=== PATIENT | male | born 1955 | race Caucasian/White ===

== ENCOUNTER 2019-08-30 13:19 | Outpatient (RCR) | payer OTHER, SELFPAY ==
[2019-08-30 14:23] LABS: Prostate Specific Antigen 3.2 ng/mL (< OR = 4.0)
== END 2019-11-28 23:59 | disposition home or self-care (01) ==
LOC: ANHLAB 13:19
PROVIDERS: PCP Physician Assistant
DX: C61 Malignant neoplasm of prostate (principal)
CPT/HCPCS: 36415; 84153

== ENCOUNTER 2019-12-26 09:55 | Outpatient (CLI) | payer OTHER, SELFPAY ==
[2019-12-26 10:29] LABS: Hemoglobin 16.7 g/dL (14.0-18.0); Mean Corpuscular HGB Conc 33.4 g/dl (32-36); Mean Corpuscular Volume 92.9 fl (80-100); Mean Platelet Volume 10.4 fl (7.4-10.4); Platelet Count Result 210 k/mm3 (150-375); Red Blood Count 5.38 M/mm3 (4.6-6.20); Red Cell Distribution Width 12.7 % (11.5-14.5); White Blood Count 5.4 K/mm3 (4.5-10.0)
[2019-12-26 10:38] LABS: Alanine Aminotransferase 26 U/L (4-50); Albumin Level 4.1 g/dL (3.5-5.1); Alkaline Phosphatase 89 U/L (38-126); Aspartate Amino Transferase 26 U/L (17-59); Bilirubin,Total 0.8 mg/dL (0.2-1.3); Blood Urea Nitrogen 14 mg/dL (9-20); Calcium 8.6 mg/dL (8.4-10.2); Carbon Dioxide 30 mmol/L (22-30); Chloride 102 mmol/L (98-107); Cholesterol 115 mg/dL (0-200); Estimated Glomerular Filt Rate > 60; Glucose 119 mg/dL (75-110); HDL Direct 33 mg/dL; Magnesium 2.1 mg/dL (1.6-2.3); Potassium 4.2 mmol/L (3.4-5.0); Sodium 140 mmol/L (137-145); Triglycerides 95 mg/dL (<150)
[2019-12-26 10:48] LABS: LDL Cholesterol Direct 67 mg/dL
== END 2019-12-26 09:56 | disposition home or self-care (01) ==
PROVIDERS: PCP Physician Assistant; Visit Provider Physician Assistant
DX: I10 Essential (primary) hypertension (principal); E78.5 Hyperlipidemia, unspecified; R97.20 Elevated prostate specific antigen [PSA]
CPT/HCPCS: 36415; 80053; 80061; 83735; 84153; 84443; 85027

== ENCOUNTER 2020-06-06 09:03 | Outpatient (CLI) | payer OTHER, SELFPAY ==
[2020-06-06 11:14] LABS: Alanine Aminotransferase 25 U/L (4-50); Albumin Level 4.1 g/dL (3.5-5.1); Alkaline Phosphatase 83 U/L (38-126); Anion Gap 8 mmol/L (8-16); Aspartate Amino Transferase 23 U/L (17-59); Bilirubin,Total 0.8 mg/dL (0.2-1.3); Blood Urea Nitrogen 15 mg/dL (9-20); Calcium 8.7 mg/dL (8.4-10.2); Carbon Dioxide 28 mmol/L (22-30); Chloride 103 mmol/L (98-107); Cholesterol 140 mg/dL (0-200); Estimated Glomerular Filt Rate > 60; Glucose 117 mg/dL (75-110); HDL Direct 39 mg/dL; Potassium 3.9 mmol/L (3.4-5.0); Sodium 139 mmol/L (137-145); Triglycerides 99 mg/dL (<150)
[2020-06-06 11:29] LABS: LDL Cholesterol Direct 77 mg/dL
[2020-06-06 11:44] LABS: Hemoglobin A1C 6.2 % (<5.7)
[2020-06-06 11:47] LABS: Prostate Specific Antigen 3.3 ng/mL (< OR = 4.0)
== END 2020-06-06 09:04 | disposition home or self-care (01) ==
LOC: ANHLAB 09:05
PROVIDERS: PCP Physician Assistant; Visit Provider Internal Medicine
DX: R53.83 Other fatigue (principal); R97.20 Elevated prostate specific antigen [PSA]; R73.9 Hyperglycemia, unspecified; E78.5 Hyperlipidemia, unspecified
CPT/HCPCS: 36415; 80053; 80061; 83036; 84153; 84443

== ENCOUNTER 2020-08-20 06:51 | Outpatient (NON) | payer OTHER, SELFPAY ==
[2020-08-20 17:22] LABS: SARS-CoV-2 RNA PCR Negative
== END 2020-08-20 06:52 ==
LOC: ANHCOVIDDT 07:02
PROVIDERS: PCP Physician Assistant; Visit Provider Physician Assistant
DX: Z20.828 Contact with and (suspected) exposure to other viral communicable diseases (principal)
CPT/HCPCS: 87635; C9803; U0003

== ENCOUNTER 2020-11-19 09:48 | Outpatient (CLI) | payer OTHER, SELFPAY ==
[2020-11-19 10:11] LABS: Basophils Absolute Auto 0.1 K/mm3 (0.0-0.1); Basophils Percent Auto 0.7 % (0.2-1.2); Eosinophils Absolute Auto 0.1 K/mm3 (0-0.3); Eosinophils Percent Auto 1.9 % (0-4.4); Hematocrit 51.1 % (42.0-52.0); Hemoglobin 17.4 g/dL (14.0-18.0); Immature Granulocyte Absolute 0.02 K/mm3 (0.00-0.031); Immature Granulocyte Percent A 0.3 % (0-0.5); Lymphocytes Absolute Auto 1.78 K/mm3 (0.9-3.2); Lymphocytes Percent Auto 26.1 % (18.3-44.2); Mean Corpuscular HGB Conc 34.1 g/dl (32-36); Mean Corpuscular Volume 94.1 fl (80-100); Mean Platelet Volume 10.3 fl (7.4-10.4); Monocytes Absolute Auto 0.5 K/mm3 (0.1-0.6); Monocytes Percent Auto 6.6 % (2.6-8.5); Neutrophils Absolute Auto 4.4 K/mm3 (1.3-6.7); Neutrophils Percent Auto 64.4 % (45.5-73.1); Platelet Count Result 239 k/mm3 (150-375); Red Blood Count 5.43 M/mm3 (4.6-6.20); Red Cell Distribution Width 12.9 % (11.5-14.5); White Blood Count 6.8 K/mm3 (4.5-10.0)
[2020-11-19 10:26] LABS: Alanine Aminotransferase 31 U/L (4-50); Albumin Level 4.3 g/dL (3.5-5.1); Alkaline Phosphatase 83 U/L (38-126); Anion Gap 5 mmol/L (8-16); Aspartate Amino Transferase 25 U/L (17-59); Bilirubin,Total 0.9 mg/dL (0.2-1.3); Blood Urea Nitrogen 12 mg/dL (9-20); Carbon Dioxide 32 mmol/L (22-30); Chloride 104 mmol/L (98-107); Cholesterol 128 mg/dL (0-200); Estimated Glomerular Filt Rate > 60; Glucose 123 mg/dL (75-110); HDL Direct 44 mg/dL; Potassium 4.6 mmol/L (3.4-5.0); Sodium 141 mmol/L (137-145); Triglycerides 96 mg/dL (<150)
[2020-11-19 10:36] LABS: LDL Cholesterol Direct 70 mg/dL
[2020-11-19 10:57] LABS: Prostate Specific Antigen 3.3 ng/mL (< OR = 4.0)
[2020-11-19 11:32] LABS: Folic Acid 11.4 ng/mL (2.76->20)
== END 2020-11-19 09:49 | disposition home or self-care (01) ==
PROVIDERS: PCP Physician Assistant; Visit Provider Physician Assistant
DX: R53.83 Other fatigue (principal); E78.5 Hyperlipidemia, unspecified; R97.20 Elevated prostate specific antigen [PSA]; I10 Essential (primary) hypertension
CPT/HCPCS: 36415; 80053; 80061; 82607; 82746; 84153; 84443; 85025

== ENCOUNTER 2021-04-29 09:28 | Outpatient (CLI) | payer OTHER, SELFPAY ==
[2021-04-29 09:55] LABS: Basophils Absolute Auto 0.1 K/mm3 (0.0-0.1); Basophils Percent Auto 0.7 % (0.2-1.2); Eosinophils Absolute Auto 0.1 K/mm3 (0-0.3); Eosinophils Percent Auto 1.7 % (0-4.4); Hematocrit 51.2 % (42.0-52.0); Hemoglobin 16.8 g/dL (14.0-18.0); Immature Granulocyte Absolute 0.03 K/mm3 (0.00-0.031); Immature Granulocyte Percent A 0.4 % (0-0.5); Lymphocytes Absolute Auto 1.57 K/mm3 (0.9-3.2); Lymphocytes Percent Auto 22.6 % (18.3-44.2); Mean Corpuscular HGB Conc 32.8 g/dl (32-36); Mean Corpuscular Hemoglobin 30.8 pg (26-34); Mean Corpuscular Volume 93.9 fl (80-100); Mean Platelet Volume 10.4 fl (7.4-10.4); Monocytes Absolute Auto 0.4 K/mm3 (0.1-0.6); Monocytes Percent Auto 6.1 % (2.6-8.5); Neutrophils Absolute Auto 4.8 K/mm3 (1.3-6.7); Neutrophils Percent Auto 68.5 % (45.5-73.1); Platelet Count Result 240 k/mm3 (150-375); Red Blood Count 5.45 M/mm3 (4.6-6.20); Red Cell Distribution Width 13.1 % (11.5-14.5); White Blood Count 6.9 K/mm3 (4.5-10.0)
[2021-04-29 10:30] LABS: Alanine Aminotransferase 27 U/L (4-50); Albumin Level 4.3 g/dL (3.5-5.1); Alkaline Phosphatase 88 U/L (38-126); Anion Gap 8 mmol/L (8-16); Aspartate Amino Transferase 23 U/L (17-59); Bilirubin,Total 1.2 mg/dL (0.2-1.3); Blood Urea Nitrogen 13 mg/dL (9-20); Calcium 9.2 mg/dL (8.4-10.2); Carbon Dioxide 29 mmol/L (22-30); Chloride 101 mmol/L (98-107); Cholesterol 130 mg/dL (0-200); Estimated Glomerular Filt Rate > 60; Glucose 111 mg/dL (75-110); HDL Direct 42 mg/dL; Sodium 138 mmol/L (137-145); Triglycerides 93 mg/dL (<150)
[2021-04-29 10:34] LABS: Hemoglobin A1C 5.9 % (<5.7)
[2021-04-29 10:41] LABS: LDL Cholesterol Direct 63 mg/dL
[2021-04-29 10:52] LABS: Vitamin D 25 Hydroxy 32.3 ng/mL
[2021-04-29 10:54] LABS: Prostate Specific Antigen 4.3 ng/mL (< OR = 4.0)
[2021-04-29 11:28] LABS: Folic Acid 8.2 ng/mL (2.76->20)
[2021-05-04 14:23] LABS: Testosterone Free 34.4 pg/mL (35.0-155.0); Testosterone Total 280 ng/dL (250-1100)
== END 2021-04-29 09:29 | disposition home or self-care (01) ==
LOC: ANHLAB 09:31
PROVIDERS: PCP Physician Assistant; Visit Provider Physician Assistant
DX: E78.5 Hyperlipidemia, unspecified (principal); R73.9 Hyperglycemia, unspecified; R97.20 Elevated prostate specific antigen [PSA]; R53.83 Other fatigue; E55.9 Vitamin D deficiency, unspecified
CPT/HCPCS: 36415; 80053; 80061; 82306; 82607; 82746; 83036; 84153; 84402; 84403; 84443; 85025

== ENCOUNTER → 2021-08-05 02:55 | Outpatient (CLI) | payer OTHER, SELFPAY ==
[2021-08-05 17:41] LABS: SARS-CoV-2 RNA PCR Negative
== END ==
PROVIDERS: PCP Physician Assistant; Visit Provider Internal Medicine
DX: Z20.822 Contact with and (suspected) exposure to COVID-19 (principal)
CPT/HCPCS: C9803; U0003; U0005

== ENCOUNTER 2022-01-06 09:34 | Outpatient (CLI) | payer OTHER, SELFPAY ==
[2022-01-06 10:02] LABS: Basophils Absolute Auto 0.1 K/mm3 (0.0-0.1); Basophils Percent Auto 0.9 % (0.2-1.2); Eosinophils Absolute Auto 0.2 K/mm3 (0-0.3); Eosinophils Percent Auto 2.2 % (0-4.4); Hematocrit 50.2 % (42.0-52.0); Hemoglobin 16.7 g/dL (14.0-18.0); Immature Granulocyte Absolute 0.02 K/mm3 (0.00-0.031); Immature Granulocyte Percent A 0.3 % (0-0.5); Lymphocytes Absolute Auto 1.68 K/mm3 (0.9-3.2); Lymphocytes Percent Auto 22.8 % (18.3-44.2); Mean Corpuscular HGB Conc 33.3 g/dl (32-36); Mean Corpuscular Hemoglobin 31.9 pg (26-34); Mean Platelet Volume 10.5 fl (7.4-10.4); Monocytes Absolute Auto 0.5 K/mm3 (0.1-0.6); Monocytes Percent Auto 6.5 % (2.6-8.5); Neutrophils Percent Auto 67.3 % (45.5-73.1); Platelet Count Result 264 k/mm3 (150-375); Red Blood Count 5.23 M/mm3 (4.6-6.20); White Blood Count 7.4 K/mm3 (4.5-10.0)
[2022-01-06 10:05] LABS: Alanine Aminotransferase 25 U/L (4-50); Albumin Level 4.2 g/dL (3.5-5.1); Alkaline Phosphatase 89 U/L (38-126); Anion Gap 4 mmol/L (8-16); Aspartate Amino Transferase 24 U/L (17-59); Bilirubin,Total 1.1 mg/dL (0.2-1.3); Blood Urea Nitrogen 16 mg/dL (9-20); Calcium 8.8 mg/dL (8.4-10.2); Carbon Dioxide 30 mmol/L (22-30); Chloride 104 mmol/L (98-107); Cholesterol 132 mg/dL (0-200); Estimated Glomerular Filt Rate > 60; Glucose 115 mg/dL (65-110); HDL Direct 40 mg/dL; Magnesium 2.1 mg/dL (1.6-2.3); Potassium 4.2 mmol/L (3.4-5.0); Sodium 138 mmol/L (137-145); Triglycerides 104 mg/dL (<150)
[2022-01-06 10:08] LABS: Hemoglobin A1C 5.6 % (<5.7)
[2022-01-06 10:16] LABS: LDL Cholesterol Direct 68 mg/dL
[2022-01-06 10:35] LABS: Prostate Specific Antigen < 0.1 ng/mL (< OR = 4.0)
[2022-01-06 11:10] LABS: Folic Acid 6.9 ng/mL (2.76->20)
[2022-01-10 15:52] LABS: Testosterone Free 46.9 pg/mL (35.0-155.0); Testosterone Total 247 ng/dL (250-1100)
== END 2022-01-06 09:35 | disposition home or self-care (01) ==
LOC: ANHLAB 09:36
PROVIDERS: PCP Physician Assistant; Visit Provider Physician Assistant
DX: Z12.5 Encounter for screening for malignant neoplasm of prostate (principal); R53.83 Other fatigue; R73.9 Hyperglycemia, unspecified; E78.5 Hyperlipidemia, unspecified; I10 Essential (primary) hypertension
CPT/HCPCS: 36415; 80053; 80061; 82607; 82746; 83036; 83735; 84153; 84402; 84403; 84443; 85025

== ENCOUNTER 2022-03-31 08:48 | Outpatient (CLI) | payer OTHER, SELFPAY ==
[2022-03-31 09:11] LABS: Basophils Absolute Auto 0.1 K/mm3 (0.0-0.1); Basophils Percent Auto 0.7 % (0.2-1.2); Eosinophils Absolute Auto 0.1 K/mm3 (0-0.3); Eosinophils Percent Auto 1.9 % (0-4.4); Hematocrit 48.4 % (42.0-52.0); Hemoglobin 16.7 g/dL (14.0-18.0); Immature Granulocyte Absolute 0.02 K/mm3 (0.00-0.031); Immature Granulocyte Percent A 0.3 % (0-0.5); Lymphocytes Absolute Auto 1.72 K/mm3 (0.9-3.2); Lymphocytes Percent Auto 24.7 % (18.3-44.2); Mean Corpuscular HGB Conc 34.5 g/dl (32-36); Mean Corpuscular Hemoglobin 31.8 pg (26-34); Mean Corpuscular Volume 92.2 fl (80-100); Mean Platelet Volume 10.4 fl (7.4-10.4); Monocytes Absolute Auto 0.5 K/mm3 (0.1-0.6); Monocytes Percent Auto 6.9 % (2.6-8.5); Neutrophils Absolute Auto 4.6 K/mm3 (1.3-6.7); Neutrophils Percent Auto 65.5 % (45.5-73.1); Platelet Count Result 254 k/mm3 (150-375); Red Blood Count 5.25 M/mm3 (4.6-6.20); Red Cell Distribution Width 13.2 % (11.5-14.5)
[2022-03-31 09:23] LABS: Alanine Aminotransferase 26 U/L (6-50); Albumin Level 3.9 g/dL (3.5-5.1); Alkaline Phosphatase 86 U/L (38-126); Anion Gap 4 mmol/L (8-16); Aspartate Amino Transferase 22 U/L (17-59); Bilirubin,Total 0.5 mg/dL (0.2-1.3); Blood Urea Nitrogen 12 mg/dL (9-20); Calcium 8.4 mg/dL (8.4-10.2); Carbon Dioxide 29 mmol/L (22-30); Chloride 105 mmol/L (98-107); Cholesterol 141 mg/dL (0-200); Estimated Glomerular Filt Rate > 60; Glucose 124 mg/dL (65-110); HDL Direct 45 mg/dL; Sodium 138 mmol/L (137-145); Triglycerides 80 mg/dL (<150)
[2022-03-31 09:36] LABS: LDL Cholesterol Direct 73 mg/dL
[2022-03-31 09:56] LABS: Prostate Specific Antigen < 0.1 ng/mL (< OR = 4.0)
[2022-03-31 10:30] LABS: Folic Acid 6.5 ng/mL (2.76->20)
[2022-04-06 11:49] LABS: Testosterone Free 41.8 pg/mL (35.0-155.0); Testosterone Total 261 ng/dL (250-1100)
== END 2022-03-31 08:49 | disposition home or self-care (01) ==
LOC: ANHLAB 08:49
PROVIDERS: PCP Physician Assistant; Visit Provider Physician Assistant
DX: R53.83 Other fatigue (principal); E78.5 Hyperlipidemia, unspecified; C61 Malignant neoplasm of prostate; R73.9 Hyperglycemia, unspecified
CPT/HCPCS: 36415; 80053; 80061; 82607; 82746; 83036; 84153; 84402; 84403; 84443; 85025

== ENCOUNTER 2022-10-01 19:10 | Emergency (ER) | payer OTHER, SELFPAY ==
[2022-10-01] VITALS (8 sets, daily range): BP systolic 113–191; BP diastolic 70–101; PULSE 63–87; RESP 15–24; TEMP 36.8; O2SAT 92–98
--- NOTE | ~2022-10-01 | XR_ITS ---
EXAMINATION: XR chest 2V DATE: 10/01/2022 19:48 INDICATION: Syncope TECHNIQUE: frontal and lateral views of the chest were obtained. COMPARISON: Chest radiograph dated 06/01/2018 FINDINGS: Mild linear discoid atelectasis in the anterior lower lung likely lingula on the lateral projection. No other airspace opacities, pulmonary edema, pleural effusion or pneumothorax. The cardiomediastinal silhouette is normal. Median sternotomy wires and mediastinal surgical clips are seen, likely from p rior coronary artery bypass grafting. IMPRESSION: 1. Mild lingular discoid atelectasis. Reviewed, dictated and finalized at location A. UNTING ASSISTANT
--- NOTE | 2022-10-01 19:11 | ECG_ITS ---
Measurements Intervals [place] Rate: 64 P: 15 AK: 176 QRS: 9 QRSD: 88 T: 117 QT: 415 QTc: 431 Interpretive Statements SINUS RHYTHM LEFT VENTRICULAR HYPERTROPHY AND ST-T CHANGE [VOLTAGE CRITERIA PLUS ST/T ABNORMALITY] NO PREVIOUS ECG AVAILABLE FOR COMPARISON Electronically Signed On 10-01-2022 21:18:36 CLOSET ORGANIZER by Becky Medina M.D.
--- NOTE | 2022-10-01 19:34 | ED.SYNCOPE ---
HPI - Syncope General Chief Complaint: Syncope Stated Complaint: syncopal Time Seen by Provider: 10/01/22 19:10 History of Present Illness HPI narrative: Patient is a 67-year-old male who presents to the ER status post syncope. Patient was at dinner and was having pain in his right leg in the posterior thigh that was making him increasingly more comfortable. He then got hot and sweaty. He opted to stand up from dinner when he had increased pain and passed out. Patient reports earlier today he was walking on his treadmill and was walking on the back aspect to avoid a sag in the middle. That is when his leg got caught and he was thrown backwards falling and getting his leg hyperextended. He has no numbness or tingling to his lower extremity. He has had increased pain and stiffness in the affected leg throughout the day. He has been taking naproxen. Patient has no chest pain or chest pressure. He does have heart history with two-vessel bypass. He does take a baby aspirin daily. When he fell he did not lose consciousness. Related Data Allergies Allergy/AdvReac Type Severity Reaction Status Date / Time No Known Allergies Allergy Unverified 08/25/15 10:13 Review of Systems Review of Systems: All systems reviewed & are unremarkable except as noted in HPI and below Constitutional: Constitutional: Denies chills, Denies fatigue and Denies fever(s) Comments: Feeling flushed ENT: Denies nasal congestion and Denies sore throat Cardiovascular: Cardiovascular: Denies chest pain, Denies rapid heart rate and Denies radiating jaw, neck or arm pain Respiratory: Respiratory: Denies dyspnea Gastrointestinal: Gastrointestinal: Denies nausea and Denies vomiting Musculoskeletal: Musculoskeletal: Denies arthralgias, Denies joint swelling and Reports muscle cramps Neurologic: Reports syncope, Denies focal weakness and Denies numbness Exam Narrative: GENERAL: Well-appearing, well-nourished, and in no acute distress. HEAD: Normocephalic, atraumatic. EYES: EOMI. CHEST: Clear to auscultation. No respiratory distress. HEART: Regular rate and rhythm. Normal peripheral pulses. ABDOMEN: Soft, nontender, nondistended. EXTREMITIES: Right lower extremity with difficulty achieving full extension at the knee due to pain in the posterior thigh. Palpation shows spasm and knotting of muscles. No hematoma or bruising. Otherwise normal movement of the left lower extremity and bilateral upper extremities. SKIN: Warm, dry, no rash. NEURO:Alert and oriented x3. PSYCH: Normal mood and affect. Course Course Emergency Course: Patient has full range of motion of his right lower extremity after Valium. Blood pressure is normalized. No chest pain or chest pressure. Feel patient had vasovagal syncope related to pain and cramping in his thigh. Patient given crutches for ambulation for home. Small supply of Valium for spasm at home and recommend oral anti-inflammatories. Patient verbalized understanding of treatment plan. Vital Signs Vital signs: Vital Signs Pulse Rate 71 10/01/22 19:09 Respiratory Rate 24 H 10/01/22 19:09 Blood Pressure 191/101 H 10/01/22 19:09 Pulse Oximetry 93 10/01/22 19:09 Pulse Rate 71 10/01/22 19:09 Respiratory Rate 24 H 10/01/22 19:09 Blood Pressure 191/101 H 10/01/22 19:09 Pulse Oximetry 93 10/01/22 19:09 MDM - Syncope Lab Data 10/01/22 19:31 10/01/22 19:31 Labs: Lab Results 10/01/22 10/01/22 10/01/22 Range/Units 19:31 19:31 19:31 WBC 14.1 H (4.5-10.0) K/mm3 RBC 4.62 (4.6-6.20) M/mm3 Hgb 15.0 (14.0-18.0) g/dL Hct 43.4 (42.0-52.0) % MCV 93.9 (80-100) fl MCH 32.5 (26-34) pg MCHC 34.6 (32-36) g/dl RDW 13.3 (11.5-14.5) % Plt Count 248 (150-375) k/mm3 MPV 10.3 (7.4-10.4) fl Immature Gran % (Auto) 0.5 (0-0.5) % Neut % (Auto) 86.3 H (45.5-73.1) % Lymph % (Auto) 8.3 L (18.3-44.2) % [place] % (Aut
[2022-10-01 19:37] LABS: Basophils Absolute Auto 0.1 K/mm3 (0.0-0.1); Basophils Percent Auto 0.5 % (0.2-1.2); Eosinophils Percent Auto 0.1 % (0-4.4); Hematocrit 43.4 % (42.0-52.0); Immature Granulocyte Absolute 0.07 K/mm3 (0.00-0.031); Immature Granulocyte Percent A 0.5 % (0-0.5); Lymphocytes Absolute Auto 1.17 K/mm3 (0.9-3.2); Lymphocytes Percent Auto 8.3 % (18.3-44.2); Mean Corpuscular HGB Conc 34.6 g/dl (32-36); Mean Corpuscular Hemoglobin 32.5 pg (26-34); Mean Corpuscular Volume 93.9 fl (80-100); Mean Platelet Volume 10.3 fl (7.4-10.4); Monocytes Absolute Auto 0.6 K/mm3 (0.1-0.6); Monocytes Percent Auto 4.3 % (2.6-8.5); Neutrophils Absolute Auto 12.2 K/mm3 (1.3-6.7); Neutrophils Percent Auto 86.3 % (45.5-73.1); Platelet Count Result 248 k/mm3 (150-375); Red Blood Count 4.62 M/mm3 (4.6-6.20); Red Cell Distribution Width 13.3 % (11.5-14.5); White Blood Count 14.1 K/mm3 (4.5-10.0)
[2022-10-01 19:47] LABS: Alanine Aminotransferase 25 U/L (6-50); Albumin Level 3.9 g/dL (3.5-5.1); Alkaline Phosphatase 79 U/L (38-126); Anion Gap 7 mmol/L (8-16); Aspartate Amino Transferase 23 U/L (17-59); Bilirubin,Total 0.7 mg/dL (0.2-1.3); Blood Urea Nitrogen 16 mg/dL (9-20); Calcium 8.5 mg/dL (8.4-10.2); Carbon Dioxide 24 mmol/L (22-30); Chloride 103 mmol/L (98-107); Estimated Glomerular Filt Rate 55; Glucose 172 mg/dL (65-110); Potassium 3.7 mmol/L (3.4-5.0); Sodium 134 mmol/L (137-145)
[2022-10-01 19:48] LABS: INR 1.2; Prothrombin Time 14.7 Seconds (11.1-14.7)
[2022-10-01 19:49] LABS: Partial Thromboplastin Time 29.2 SECONDS (22.3-36.8)
[2022-10-01] MEDS: MORPHINE SULFATE (*CRX) 4 MG/ML INJ IV PUSH (19:52)
[2022-10-01 19:58] LABS: Troponin I < 0.012 ng/mL (0.000-0.034)
[2022-10-01] MEDS: diazePAM INJ (*CRX) 10 MG/2 ML SYRINGE 3 MG IV PUSH (20:26)
[2022-10-01] MEDS: SODIUM CHLORIDE 0.9% IV 1,000 ML 999 ML IV CONT (20:26)
== END 2022-10-01 21:27 | disposition home or self-care (01) ==
PROVIDERS: Emergency Provider Emergency Medicine; PCP Physician Assistant
DX: R55 Syncope and collapse (principal); R25.2 Cramp and spasm
CPT/HCPCS: 36415; 71046; 80053; 84484; 85025; 85610; 85730; 93005; 96361; 96374; 96375; 99284; J2270; J3360; J7030

== ENCOUNTER 2022-10-13 09:40 | Outpatient (CLI) | payer OTHER, SELFPAY ==
--- NOTE | ~2022-10-13 | US_ITS ---
EXAMINATION: US venous doppler LE RT, US soft tissue LE RT DATE: 10/13/2022 10:30 INDICATION: Right lower limb pain, swelling and erythema. Localized superficial swelling/mass. TECHNIQUE: Grayscale ultrasound images without and with compression and Doppler ultrasound images of the right lower extremity veins were obtained. Additional grayscale and color Doppler ultrasound imag es of the soft tissues of the medial right thigh were obtained in the region of the localized swellin g. COMPARISON: None. FINDINGS: The visualized portions of right common femoral vein, profunda (deep) femoral vein, femoral vein, pop liteal vein, peroneal trunk, posterior tibial veins, peroneal veins and greater saphenous vein outflo w are patent. Small reticulated pattern of hypoechoic mild subcutaneous edema at the region of concer n. The subcutaneous fat and underlying musculature appears otherwise unremarkable. No abnormal masses or loculated fluid collections identified. IMPRESSION: 1. No deep venous thrombosis in the right lower limb. 2. Mild edema in the subcutaneous tissues at the region of concern. No abnormal masses or loculated f luid collections identified. Reviewed, dictated and finalized at location A. ARCH PROFESSOR OF BIOSTATISTICS IMPRESSION: 1. No deep venous thrombosis in the right lower limb. 2. Mild edema in the subcutaneous tissues at the region of concern. No abnormal masses or loculated fluid collections identified.
== END 2022-10-13 09:41 | disposition home or self-care (01) ==
PROVIDERS: PCP Physician Assistant; Visit Provider Physician Assistant
DX: R22.41 Localized swelling, mass and lump, right lower limb (principal); M79.89 Other specified soft tissue disorders
CPT/HCPCS: 76882; 93971

== ENCOUNTER 2022-12-22 09:03 | Outpatient (CLI) | payer OTHER, SELFPAY ==
[2022-12-22 09:35] LABS: Basophils Percent Auto 0.6 % (0.2-1.2); Eosinophils Absolute Auto 0.2 K/mm3 (0-0.3); Eosinophils Percent Auto 2.2 % (0-4.4); Hematocrit 52.6 % (42.0-52.0); Hemoglobin 17.5 g/dL (14.0-18.0); Immature Granulocyte Absolute 0.01 K/mm3 (0.00-0.031); Immature Granulocyte Percent A 0.1 % (0-0.5); Lymphocytes Absolute Auto 1.69 K/mm3 (0.9-3.2); Lymphocytes Percent Auto 25.2 % (18.3-44.2); Mean Corpuscular HGB Conc 33.3 g/dl (32-36); Mean Corpuscular Hemoglobin 31.1 pg (26-34); Mean Corpuscular Volume 93.6 fl (80-100); Mean Platelet Volume 10.3 fl (7.4-10.4); Monocytes Absolute Auto 0.4 K/mm3 (0.1-0.6); Monocytes Percent Auto 5.8 % (2.6-8.5); Neutrophils Absolute Auto 4.4 K/mm3 (1.3-6.7); Neutrophils Percent Auto 66.1 % (45.5-73.1); Platelet Count Result 232 k/mm3 (150-375); Red Blood Count 5.62 M/mm3 (4.6-6.20); Red Cell Distribution Width 13.3 % (11.5-14.5); White Blood Count 6.7 K/mm3 (4.5-10.0)
[2022-12-22 09:46] LABS: Alanine Aminotransferase 30 U/L (6-50); Albumin Level 4.3 g/dL (3.5-5.1); Alkaline Phosphatase 88 U/L (38-126); Anion Gap 7 mmol/L (8-16); Aspartate Amino Transferase 24 U/L (17-59); Blood Urea Nitrogen 15 mg/dL (9-20); Calcium 8.6 mg/dL (8.4-10.2); Carbon Dioxide 27 mmol/L (22-30); Chloride 105 mmol/L (98-107); Cholesterol 149 mg/dL (0-200); Estimated Glomerular Filt Rate > 60; Glucose 118 mg/dL (65-110); HDL Direct 41 mg/dL; Potassium 3.9 mmol/L (3.4-5.0); Sodium 139 mmol/L (137-145); Triglycerides 138 mg/dL (<150)
[2022-12-22 09:57] LABS: LDL Cholesterol Direct 80 mg/dL
[2022-12-22 10:16] LABS: Prostate Specific Antigen < 0.1 ng/mL (< OR = 4.0)
[2022-12-22 10:41] LABS: Hemoglobin A1C 5.9 % (<5.7)
[2022-12-29 15:56] LABS: Testosterone Free 39.5 pg/mL (35.0-155.0); Testosterone Total 255 ng/dL (250-1100)
== END 2022-12-22 09:04 | disposition home or self-care (01) ==
LOC: ANHLAB 09:04
PROVIDERS: PCP Physician Assistant; Visit Provider Physician Assistant
DX: R53.83 Other fatigue (principal); I10 Essential (primary) hypertension; R73.9 Hyperglycemia, unspecified; E78.5 Hyperlipidemia, unspecified; C61 Malignant neoplasm of prostate
CPT/HCPCS: 36415; 80053; 80061; 83036; 84153; 84402; 84403; 84443; 85025

== ENCOUNTER 2023-06-15 11:50 | Outpatient (CLI) | payer OTHER, SELFPAY ==
[2023-06-15 13:04] LABS: Basophils Absolute Auto 0.1 K/mm3 (0.0-0.1); Basophils Percent Auto 0.9 % (0.2-1.2); Eosinophils Absolute Auto 0.1 K/mm3 (0-0.3); Eosinophils Percent Auto 1.4 % (0-4.4); Hematocrit 50.1 % (42.0-52.0); Hemoglobin 16.7 g/dL (14.0-18.0); Immature Granulocyte Absolute 0.01 K/mm3 (0.00-0.031); Immature Granulocyte Percent A 0.2 % (0-0.5); Lymphocytes Absolute Auto 1.66 K/mm3 (0.9-3.2); Lymphocytes Percent Auto 28.9 % (18.3-44.2); Mean Corpuscular HGB Conc 33.3 g/dl (32-36); Mean Corpuscular Hemoglobin 31.5 pg (26-34); Mean Corpuscular Volume 94.4 fl (80-100); Mean Platelet Volume 10.9 fl (7.4-10.4); Monocytes Absolute Auto 0.5 K/mm3 (0.1-0.6); Neutrophils Absolute Auto 3.5 K/mm3 (1.3-6.7); Neutrophils Percent Auto 60.6 % (45.5-73.1); Platelet Count Result 237 k/mm3 (150-375); Red Blood Count 5.31 M/mm3 (4.6-6.20); Red Cell Distribution Width 12.6 % (11.5-14.5); White Blood Count 5.7 K/mm3 (4.5-10.0)
[2023-06-15 13:21] LABS: Alanine Aminotransferase 25 U/L (6-50); Albumin Level 4.2 g/dL (3.5-5.1); Alkaline Phosphatase 77 U/L (38-126); Anion Gap 7 mmol/L (8-16); Aspartate Amino Transferase 23 U/L (17-59); Blood Urea Nitrogen 14 mg/dL (9-20); Calcium 8.9 mg/dL (8.4-10.2); Carbon Dioxide 29 mmol/L (22-30); Chloride 101 mmol/L (98-107); Cholesterol 122 mg/dL (0-200); Estimated Glomerular Filt Rate > 60; Glucose 104 mg/dL (65-110); HDL Direct 35 mg/dL; Potassium 4.2 mmol/L (3.4-5.0); Sodium 137 mmol/L (137-145); Triglycerides 91 mg/dL (<150)
[2023-06-15 13:32] LABS: LDL Cholesterol Direct 74 mg/dL
[2023-06-15 13:35] LABS: Hemoglobin A1C 5.8 % (<5.7)
[2023-06-15 13:52] LABS: Prostate Specific Antigen < 0.1 ng/mL (< OR = 4.0)
[2023-06-19 14:35] LABS: Testosterone Free 30.1 pg/mL (35.0-155.0); Testosterone Total 215 ng/dL (250-1100)
== END 2023-06-15 11:51 | disposition home or self-care (01) ==
PROVIDERS: PCP Physician Assistant; Visit Provider Internal Medicine
DX: C61 Malignant neoplasm of prostate (principal); R73.9 Hyperglycemia, unspecified; E78.5 Hyperlipidemia, unspecified; I10 Essential (primary) hypertension; R53.83 Other fatigue
CPT/HCPCS: 36415; 80053; 80061; 83036; 84153; 84402; 84403; 85025

== ENCOUNTER 2023-07-28 00:07 | Emergency (ER) | payer OTHER, SELFPAY ==
[2023-07-28] VITALS (9 sets, daily range): BP systolic 154–174; BP diastolic 89–101; PULSE 84–102; RESP 16–30; TEMP 35.8–36.3; O2SAT 100
--- NOTE | ~2023-07-28 | XR_ITS ---
Portable chest x-ray Comparison: 10/01/2022 Clinical History: Tube placement Findings: Endotracheal tube and NG tube are in satisfactory positions. There is right basilar consol idation with probable small right pleural effusion. Probable mild central congestive changes. Cardio mediastinal silhouette is stable. Bones and soft tissues are unremarkable. Impression: Support tubes, as above. Right basilar consolidation. Correlate for pulmonary edema/atelectasis versus pneumonia. Small right pleural effusion with mild central congestive changes. Reviewed, dictated and finalized at location . Impression: Support tubes, as above. Right basilar consolidation. Correlate for pulmonary edema/atelectasis versus p neumonia. Small right pleural effusion with mild central congestive changes.
--- NOTE | ~2023-07-28 | CT_ITS ---
Non-contrast Head CT History: Altered mental status Technique: Axial non-contrast imaging of the brain was performed. Dose reduction technique was used on this scan by utilizing automated exposure control and iterative reconstruction technique. The dose -length product (DLP) was 681.00 mGy-cm. Findings: There is marked, diffuse subarachnoid hemorrhage, especially prominent in the anterior inte rhemispheric fissure. Small amount of intraventricular hemorrhage noted in the lateral ventricles and third ventricle. No parenchymal lesion evident. The ventricles and subarachnoid spaces are normal in size. The calvarium appears normal. The visualized paranasal sinuses and mastoid air cells are allison ar. Impression: Marked, diffuse subarachnoid hemorrhage, as detailed above, with small amount of intraventricular hem orrhage. Findings are suspicious for underlying ruptured aneurysm. CTA recommended for further evalua tion. Reviewed, dictated and finalized at [facility]. Impression: Marked, diffuse subarachnoid hemorrhage, as detailed above, with small amount o f intraventricular hemorrhage. Findings are suspicious for underlying ruptured aneurysm. CTA recommended for further evaluation.
--- NOTE | ~2023-07-28 | XR_ITS ---
Supine portable view of the abdomen Clinical history: NG tube placement Findings: NG tube in satisfactory position. Bowel gas pattern is nonspecific. No evidence for obstruc tion or free air. No abnormal mass lesion or calcification is seen. Osseous structures are intact. Impression: NG tube in satisfactory position. Reviewed, dictated and finalized at location . Impression: NG tube in satisfactory position.
--- NOTE | 2023-07-28 00:08 | ECG_ITS ---
Measurements Intervals [place] Rate: 93 P: 58 [place]: 195 QRS: -53 QRSD: 172 T: 83 QT: 448 QTc: 557 Interpretive Statements SINUS RHYTHM LEFT ATRIAL ENLARGEMENT [-0.15mV P WAVE IN V1/V2] LEFT BUNDLE BRANCH BLOCK [120+ ms QRS DURATION, 80+ ms Q/S IN V1/V2, 85+ ms R IN I/aVL/V5/V6] ABNORMAL ECG COMPARED TO ECG 10/01/2022 19:14:02 LEFT BUNDLE BRANCH BLOCK IS NEW Electronically Signed On 07-28-2023 7:40:57 CDT by Patrice Posadas M.D.
[2023-07-28] MEDS: PROPOFOL IV EMULSION 100 ML 3.49 MG IV CONT (00:30)
--- NOTE | 2023-07-28 00:46 | ED.NEUROSD ---
HPI - Neuro Symptoms/Deficit General Chief Complaint: Suspected CVA Stated Complaint: UNRESPONSIVE Time Seen by Provider: 07/28/23 00:08 History of Present Illness HPI Narrative: Patient is a 68-year-old gentleman who presents the emergency department with chief complaint of altered mental status. Patient is a local primary care provider has prior history of AK and presents after he was found unresponsive by his . Patient vomited and was last known well approximately 9 PM tonight EMS noticed that he had a lateral gaze and was only responsive to painful stimuli Related Data Allergies Allergy/AdvReac Type Severity Reaction Status Date / Time No Known Allergies Allergy Unverified 08/25/15 10:13 Review of Systems Review of Systems: A 10 system review of systems was completed on the patient and is negative except for what is stated in the HPI. Nursing and ancillary documentation was reviewed. PMFSH Comments Hypertension, hyperlipidemia, AK Social history patient is a primary care physician Exam Narrative: GENERAL: Ill-appearing not interactive HEAD: Normocephalic, atraumatic. EYES: Eyes are open not following. ENT: Nares clear, no rhinorrhea or epistaxis. Mucous membranes moist. There is crusted vomit around the mouth NECK: Supple. CHEST: Clear to auscultation. No respiratory distress. HEART: Regular rate and rhythm. No murmur heard. Normal peripheral pulses. ABDOMEN: Soft, nontender, nondistended, normal active bowel sounds. EXTREMITIES: Upper extremities are held upward toward the trunk. No edema. SKIN: Warm, dry, no rash. NEURO: Localizes to pain does not follow commands PSYCH: Unable to obtain Course Vital Signs Vital signs: Vital Signs Pulse Rate 101 H 07/28/23 00:29 Respiratory Rate 30 H 07/28/23 00:29 Pulse Oximetry 100 07/28/23 00:29 Temperature 35.8 C L 07/28/23 00:37 Pulse Rate 87 07/28/23 00:37 Respiratory Rate 29 H 07/28/23 00:37 Blood Pressure 154/89 H 07/28/23 00:37 Pulse Oximetry 100 07/28/23 00:29 Procedures Intubation Intubation #1: Intubation Date: 07/28/23 Intubation Time: 00:49 Time out performed: Yes sedative: Etomidate Mg Given: 20 paralytic: Succinylcholine Mg Given: 100 Laryngoscope: Antoine Assist Device Used: fiber optic device Tube Size (cm): 7.5 Method of Intubation: orotracheal Number of Attempts: 1 Tube Secured Depth (cm): 23 Tube Secured Location: lips Tube Placement Confirmation: visualized tube passing through cords, equal breath sounds bilaterally, no breath sounds over epigastrium and confirmation by capnometry Patient Tolerated Procedure: well Intubation Complications: none MDM - Neuro Symptoms/Deficit MDM Narrative Medical decision making narrative: Differential diagnosis includes intracranial hemorrhage, subarachnoid hemorrhage, seizure, CVA Patient was immediately brought to CT scan upon arrival of which the patient was found to have subarachnoid hemorrhage and evidence of a aneurysmal bleed. Patient vomited immediately after undergoing CT scan and the patient was intubated for airway protection Lab Data 07/28/23 00:28 07/28/23 00:28 Labs: Lab Results 07/28/23 07/28/23 Range/Units 00:28 00:39 WBC Pending RBC Pending Hgb Pending Hct Pending MCV Pending MCH Pending MCHC Pending RDW Pending Plt Count Pending MPV Pending Immature Gran % (Auto) Pending Neut % (Auto) Pending Lymph % (Auto) Pending [place] % (Auto) Pending Eos % (Auto) Pending Baso % (Auto) Pending Lymph # (Auto) Pending [place] # (Auto) Pending Eos # (Auto) Pending Baso # (Auto) Pending Abs Immat Gran (auto) Pending Absolute Neuts (auto) Pending Absolute Nucleated RBC Pending Nucleated RBC % Pending PT Pe
--- NOTE | 2023-07-28 00:47 | PC.NURSE ---
On the way back from CT the patient began vomiting. Once back in the room the patient was suctioned with yankur and per EDP Dr. Ware begin the process to intubate. The following is a list of events: 0021: 20mg Etomidate given IVP then flushed with 10mL NS 0022: 100mg Succinylcholine given IVP then pushed with 10mL NS. 0023: 7.5 ETT tube placed and measured 23@ the lips. ETT verified with EcO2 positive color change, EDP Dr. Ware visualized the vocal cords, and positive bi-lateral breath sounds heard with stethoscope.
[2023-07-28 00:49] LABS: Glucose Point of Care 228 mg/dl (65-105)
[2023-07-28] MEDS: RAPID SEQUENCE INTUBATION KIT 1 EACH (00:53)
[2023-07-28] MEDS: SODIUM CHLORIDE 0.9% IV 1,000 ML 999 ML IV CONT (00:55)
[2023-07-28 01:08] LABS: Alanine Aminotransferase 54 U/L (6-50); Albumin Level 4.9 g/dL (3.5-5.1); Alkaline Phosphatase 94 U/L (38-126); Anion Gap 16 mmol/L (8-16); Aspartate Amino Transferase 49 U/L (17-59); Bilirubin,Total 0.9 mg/dL (0.2-1.3); Blood Urea Nitrogen 25 mg/dL (9-20); Calcium 9.1 mg/dL (8.4-10.2); Carbon Dioxide 23 mmol/L (22-30); Chloride 102 mmol/L (98-107); Estimated CRCL calculation 58 ml/min; Estimated Glomerular Filt Rate 51; Glucose 245 mg/dL (65-110); INR 1.2; Magnesium 2.1 mg/dL (1.6-2.3); Potassium 3.3 mmol/L (3.4-5.0); Prothrombin Time 15.3 Seconds (11.1-14.7); Sodium 141 mmol/L (137-145); Troponin I 0.465 ng/mL (0.000-0.034)
[2023-07-28 01:09] LABS: Partial Thromboplastin Time 33.3 SECONDS (22.3-36.8)
[2023-07-28 01:25] LABS: Basophils Absolute Auto 0.1 K/mm3 (0.0-0.1); Basophils Percent Auto 0.2 % (0.2-1.2); Hematocrit 54.7 % (42.0-52.0); Hemoglobin 17.9 g/dL (14.0-18.0); Immature Granulocyte Absolute 0.14 K/mm3 (0.00-0.031); Immature Granulocyte Percent A 0.6 % (0-0.5); Lymphocytes Absolute Auto 1.47 K/mm3 (0.9-3.2); Lymphocytes Percent Auto 6.5 % (18.3-44.2); Mean Corpuscular HGB Conc 32.7 g/dl (32-36); Mean Corpuscular Hemoglobin 31.3 pg (26-34); Mean Corpuscular Volume 95.8 fl (80-100); Mean Platelet Volume 11.2 fl (7.4-10.4); Monocytes Absolute Auto 0.9 K/mm3 (0.1-0.6); Monocytes Percent Auto 3.9 % (2.6-8.5); Neutrophils Absolute Auto 20.1 K/mm3 (1.3-6.7); Neutrophils Percent Auto 88.8 % (45.5-73.1); Platelet Count Result 281 k/mm3 (150-375); Red Blood Count 5.71 M/mm3 (4.6-6.20); Red Cell Distribution Width 13.6 % (11.5-14.5); White Blood Count 22.6 K/mm3 (4.5-10.0)
[2023-07-28 01:30] LABS: Triglycerides 93 mg/dL (<150)
[2023-07-28 01:49] LABS: Appearance Urine Cloudy (Clear); Bacteria Urine None Seen /hpf; Bilirubin Urine Negative (Negative); Blood Urine 2+ (Negative); Color Urine Yellow (Yellow); Glucose Urine UA 3+ mg/dL (Negative); Ketones Urine 1+ mg/dL (Negative); Leukocyte Esterase Ur Negative LEU/UL (Negative); Need Manual Microscopic Reviewed; Nitrate Urine Negative (Negative); Protein Urine 3+ mg/dL (Negative); RBC Urine 0-2 /hpf (0-2); Specific Grav Ur 1.029 (1.001-1.035); Squamous Epithelial Cell Urine Many /hpf (Few); Urobilinogen Urine 0.2 mg/dL (<2.0)
[2023-07-28] MEDS: levETIRAcetam 1000MG/NACL100ML 1,000 MG/100 ML BAG 400 MG IVPB (01:55)
[2023-07-28] MEDS: niCARdipine 20 MG/200 ML 20 MG/200 ML BAG 50 MG IV CONT (01:56)
[2023-07-28 02:16] LABS: Add Urine Microscopic? YES
--- NOTE | 2023-07-28 02:36 | PC.NURSE ---
[facility] requested a bottle of propofol incase the bottle currently running ran out. Overrode a bottle of propofol.
[2023-07-28 03:32] LABS: Reflex Lactic Acid Yes or No Add Lactic
== END 2023-07-28 02:39 | disposition short-term general hospital (02) ==
PROVIDERS: Emergency Provider Emergency Medicine; PCP Physician Assistant
DX: I60.2 Nontraumatic subarachnoid hemorrhage from anterior communicating artery (principal); I10 Essential (primary) hypertension; I25.2 Old myocardial infarction; E78.5 Hyperlipidemia, unspecified; I44.7 Left bundle-branch block, unspecified; R94.31 Abnormal electrocardiogram [ECG] [EKG]
CPT/HCPCS: 31500; 36415; 70450; 80053; 81001; 82948; 83605; 83735; 84478; 84484; 85025; 85610; 85730; 87086; 93005; 96365; 96366; 96367; 96368; 99291; J0330; J1953; J2704; J7030

== ENCOUNTER 2023-11-08 05:23 | Outpatient (CLI) | payer OTHER, SELFPAY ==
[2023-11-07 14:31] VITALS: BMI 29.2
--- NOTE | ~2023-11-08 | XR_ITS ---
EXAMINATION: XR abdomen/kub 1V DATE: 11/08/2023 10:22 INDICATION: G-tube replacement TECHNIQUE: A supine view of the abdomen was obtained. COMPARISON: None. FINDINGS: Percutaneous gastrostomy tube bulb projects of the body the stomach. There is a likely ventriculoperi toneal shunt catheter which courses caudally along the visualized inferior thorax: Right upper quadra nt for extending across the midline with the distal tip in the left upper quadrant. No dilated gas-fi lled loops of bowel to suggest obstruction. Lung bases are clear with no pleural effusion. Heart size is normal. Median sternotomy wires and mediastinal surgical clips are seen, likely from prior talam[place] ry artery bypass grafting. IMPRESSION: 1. Percutaneous gastrostomy tube bulb projects over the body of the stomach. Reviewed, dictated and finalized at location A. STRIPPER
--- NOTE | ~2023-11-08 | XR_ITS ---
EXAMINATION: XR abdomen gastric tube insert DATE: 11/08/2023 10:37 INDICATION: Gastric tube replacement TECHNIQUE: A supine view of the abdomen was obtained on 2 images for evaluation of percutaneous mesfin rostomy tube placement. COMPARISON: 11/08/2023 at 10:14 AM FINDINGS: Contrast-enhanced been injected through the previous noted percutaneous gastrostomy tube with the con trast filling the gastric body and extending into the duodenum. No evident extraluminal contrast extr avasation. Unchanged likely ventriculoperitoneal shunt catheter with distal tip left upper quadrant. Moderate amount of stool throughout the colon. No dilated loops of gas-filled bowel to suggest obstru ction. Lung bases are clear. Heart size is normal. Median sternotomy wires and mediastinal surgical c lips are seen, likely from prior coronary artery bypass grafting. IMPRESSION: 1. Percutaneous gastrostomy tube tip in the body the stomach with injected contrast extending to the stomach into the duodenum. No extraluminal contrast extravasation. Reviewed, dictated and finalized at location A. ONAL FLATBED TRUCK DRIVER IMPRESSION: 1. Percutaneous gastrostomy tube tip in the body the stomach with injected cont rast extending to the stomach into the duodenum. No extraluminal contrast extra vasation.
[2023-11-08 10:00] VITALS: BP 142/83; PULSE 82; RESP 20; TEMP 36.2; O2SAT 96
--- NOTE | 2023-11-08 10:20 | PM.HPGS ---
History of Present Illness History of Present Illness Consent: Risks, benefits, and alternatives have been discussed and questions answered. Patient agrees to proceed with procedure. Chief complaint: malfunctioning g tube Narrative: Roland Arana is a 68 year old male who had aneurysm brain treated medically and recovering, had G-tube tube placed by IR and lately not working however for last week he has been eating more and he has not used it anyways. He is here to have it exchange Review of Systems Review of Systems: All systems reviewed & are unremarkable except as noted in HPI and below PMFSH Past Medical History Medical History (Updated 11/08/23 @ 10:23 by Johnny Alfaro MD) Malfunction of gastrostomy tube Screening for prostate cancer Surgical History Surgical History S/P CABG x 2 Social History Social History Smoking status: Never smoker Second hand tobacco smoke exposure: No Alcohol intake: never Substance use: never Substance use type: does not use Living arrangements: other Additional living arrangements comments: REHAB Spiritual care concerns: No Meds Home Medications and Allergies Home Medications Medication Instructions Recorded Confirmed Type acetaminophen 650 mg PO Q6H 09/18/23 11/07/23 History amantadine HCl 100 mg PO DAILY 09/18/23 11/07/23 History amlodipine 10 mg PO DAILY 09/18/23 11/07/23 History atorvastatin 40 mg tablet 40 mg PO HS 09/18/23 11/07/23 History bisacodyl 10 mg RECTAL DAILY PRN Constipation 09/18/23 11/07/23 History cetirizine 10 mg PO DAILY 09/18/23 11/07/23 History heparin (porcine) 5,000 unit subcut Q8H 09/18/23 11/07/23 History metoprolol tartrate 25 mg tablet 25 mg PO BID 09/18/23 11/07/23 History oxycodone 5 mg feeding tube Q4H PRN Pain 6 09/18/23 11/07/23 History and above polyethylene glycol 17 g PO DAILY PRN Constipation 09/18/23 11/07/23 History Adults Multivitamin 1 tablet PO DAILY 10/20/23 11/07/23 History levetiracetam 500 mg tablet 500 mg PO BID 10/20/23 11/07/23 History famotidine 20 mg tablet 20 mg PO BID 11/07/23 11/07/23 History losartan 25 mg tablet 25 mg PO BID 11/07/23 11/07/23 History senna-docusate sodium tablet 1 tablet PO HS 11/07/23 11/07/23 History sulfamethoxazole 800 1 tablet PO Q12H 11/07/23 11/07/23 History mg-trimethoprim 160 mg tablet Allergies Allergy/AdvReac Type Severity Reaction Status Date / Time No Known Allergies Allergy Verified 11/08/23 09:59 Vital Signs Vital Signs - 24 hr 11/08/23 10:00 Temperature 97.1 F L Pulse Rate 82 Respiratory Rate 20 Blood Pressure 142/83 H Pulse Oximetry 96 Oxygen Delivery Room Air Exam Const: General: cooperative, comfortable, no acute distress and well developed HENMT: Head: normocephalic and atraumatic Ears: TM's normal bilaterally Eyes: General: appearance normal, both eyes and all related structures Pupils: Equal, round and reactive pupils present Neck: Neck: supple Thyroid: thyroid normal Resp: Effort & Inspection: normal respiratory effort Auscultation: clear to auscultation bilaterally Cardio: Rate: regular rate Rhythm: regular rhythm GI: Auscultation: normal bowel sounds Other: PEG tube : General: Yes bladder normal to palpation Other: no sosa Skin: General skin exam: normal color and no rashes or lesions noted Neuro: General: gait normal Cranial nerves: Yes Equal, round and reactive pupils present Speech: normal speech Extrem: Other: no deformity Psych: Mental Status: mental status grossly normal Affect: normal affect Assessment and Plan Assessment and plan (1) Malfunction of gastrostomy tube: Code(s): K94.23 - Gastrostomy malfunction Status: Acute Assessment and Plan: will replace today (2) Subdural hematoma: Code(s): S06.5XAA - Traumatic sub
--- NOTE | 2023-11-08 10:23 | W.PM.PROC2 ---
Procedure Note - Detailed Date of Procedure 11/08/23 Pre-op Diagnosis malfunctioning g tube Post-op Diagnosis Same Procedure Performed exchange G-tube Surgeon Johnny Alfaro MD Anesthesia None Findings 16 Fr g-tube in place Description of Procedure 16 fr g-tube in place, used syringe to deflate syringe, then used 18 Fr replacement G-tube kit, introduced using same gastrostomy site without problem, balloon insufflated 6 ml and secured at 4 cm. Will order XR to confirm right position then can be used if needed again.
--- NOTE | 2023-11-08 11:32 | SUR.OPER ---
Spoke with Dr Harrell regarding when patient could resume his Heparin injections. Dr. Harrell said pt could restart the Heparin tomorrow at 6 am. Information relayed to patient and spouse, Layra RN at [facility] and also noted on his discharge medication list.
--- NOTE | 2023-11-08 11:42 | SUR.OPER ---
pt transported back to [facility] via ambulance services, report given to EMS.
--- NOTE | 2023-11-08 11:44 | SUR.OPER ---
#18 Fr replacement Gastrostomy tube placed at patient's bedside by Dr. Harrell. G-tube balloon inflated to 6 ml of sterile water. Abdominal xray ordered to confirm placement. Drain sponge placed around G-tube and secured with some paper tape.
== END 2023-11-08 11:42 ==
PROVIDERS: PCP Internal Medicine; Visit Provider Internal Medicine Gastroenterology
PROC: 0DH63UZ Insertion of Feeding Device into Stomach, Percutaneous Approach (ICD-10-PCS; CPT 43246; principal; 2023-11-08 12:00)
DX: K94.23 Gastrostomy malfunction (principal)
CPT/HCPCS: 43246; 74018; 99212; G0463

== ENCOUNTER 2024-03-21 12:12 | Outpatient (CLI) | payer OTHER, SELFPAY ==
[2024-03-21 12:39] LABS: Basophils Percent Auto 0.6 % (0.2-1.2); Eosinophils Absolute Auto 0.1 K/mm3 (0-0.3); Eosinophils Percent Auto 1.2 % (0-4.4); Hematocrit 47.1 % (42.0-52.0); Hemoglobin 15.6 g/dL (14.0-18.0); Immature Granulocyte Absolute 0.02 K/mm3 (0.00-0.031); Immature Granulocyte Percent A 0.3 % (0-0.5); Lymphocytes Absolute Auto 1.68 K/mm3 (0.9-3.2); Lymphocytes Percent Auto 24.5 % (18.3-44.2); Mean Corpuscular HGB Conc 33.1 g/dl (32-36); Mean Corpuscular Hemoglobin 31.7 pg (26-34); Mean Corpuscular Volume 95.7 fl (80-100); Mean Platelet Volume 10.4 fl (7.4-10.4); Monocytes Absolute Auto 0.4 K/mm3 (0.1-0.6); Monocytes Percent Auto 5.8 % (2.6-8.5); Neutrophils Absolute Auto 4.7 K/mm3 (1.3-6.7); Neutrophils Percent Auto 67.6 % (45.5-73.1); Platelet Count Result 240 k/mm3 (150-375); Red Blood Count 4.92 M/mm3 (4.6-6.20); Red Cell Distribution Width 12.9 % (11.5-14.5); White Blood Count 6.9 K/mm3 (4.5-10.0)
[2024-03-21 12:52] LABS: Alanine Aminotransferase 24 U/L (6-50); Albumin Level 4.6 g/dL (3.5-5.1); Alkaline Phosphatase 84 U/L (38-126); Anion Gap 6 mmol/L (4-12); Aspartate Amino Transferase 18 U/L (17-59); Bilirubin,Total 0.9 mg/dL (0.2-1.3); Blood Urea Nitrogen 18 mg/dL (9-20); Calcium 9.4 mg/dL (8.4-10.2); Carbon Dioxide 30 mmol/L (22-30); Chloride 106 mmol/L (98-107); Cholesterol 125 mg/dL (0-200); Estimated Glomerular Filt Rate > 60; Glucose 104 mg/dL (65-110); HDL Direct 43 mg/dL; Potassium 4.6 mmol/L (3.4-5.0); Sodium 142 mmol/L (137-145); Triglycerides 92 mg/dL (<150)
[2024-03-21 13:05] LABS: LDL Cholesterol Direct 65 mg/dL
[2024-03-21 13:57] LABS: Free T4 Free Thyroxine 1.13 ng/mL (0.78-2.19)
[2024-03-21 14:04] LABS: Hemoglobin A1C 5.4 % (<5.7)
== END 2024-03-21 12:13 | disposition home or self-care (01) ==
LOC: ANHLAB 12:14
PROVIDERS: PCP Internal Medicine; Visit Provider Internal Medicine
DX: E55.9 Vitamin D deficiency, unspecified (principal); Z13.29 Encounter for screening for other suspected endocrine disorder; Z79.899 Other long term (current) drug therapy; Z13.1 Encounter for screening for diabetes mellitus; E78.5 Hyperlipidemia, unspecified; I10 Essential (primary) hypertension
CPT/HCPCS: 36415; 80053; 80061; 82306; 83036; 84439; 84443; 85025

== ENCOUNTER 2024-07-03 12:50 | Outpatient (CLI) | payer OTHER, SELFPAY ==
--- NOTE | ~2024-07-03 | XR_ITS ---
EXAMINATION: XR thoracic spine 3V, XR hip LT 2V w AP pelvis, XR lumbar spine 2-3V DATE: 07/03/2024 13:17 INDICATION: Back pain radiating down to the left leg TECHNIQUE: 1. One AP, lateral and lateral swimmer's views of the thoracic spine were obtained. 2. AP, lateral and lateral lumbosacral views of the lumbar spine were obtained. 3. AP view of the pelvis and AP and frog-leg lateral views of the left hip were obtained. COMPARISON: Two-view chest radiograph dated 10/01/2020 FINDINGS: Thoracic spine: Mild thoracic kyphosis. Unchanged chronic mild anterior wedging of a midthoracic vertebral body. Anca ining thoracic vertebral body heights are normal. There is minimal to mild disc height loss at a few thoracic levels. There several scattered small to moderate-sized endplate osteophytes. Visualized por tion of the lungs are clear. No pulmonary edema, pleural effusion or pneumothorax. Heart size is norm al. Median sternotomy wires and mediastinal surgical clips are seen, likely from prior coronary arter y bypass grafting. Ventriculoperitoneal shunt catheter extending across the right side of the neck an d anterior right chest. Lumbar spine: 2 mm retrolisthesis L4 on L5. Vertebral body heights are normal. Mild disc height loss at T12-L1. The re are multiple small to moderate-sized endplate osteophytes throughout the lumbar spine. Moderate lo wer lumbar predominant facet osteoarthritis. The distal tip of the ventriculoperitoneal shunt is in t he anterior pelvis. Normal bowel gas pattern. Mild bilateral sacroiliac osteoarthritis. Pelvis and left hip: Bone alignment is normal. No fracture or suspected osteonecrosis. There is mild bilateral hip osteoarthritis. IMPRESSION: 1. Mild thoracolumbar spondylosis with chronic mild anterior wedging of a midthoracic vertebral body. No acute osseous abnormality. 2. Mild bilateral hip and sacroiliac osteoarthritis. Reviewed, dictated and finalized at location B. IMPRESSION: 1. Mild thoracolumbar spondylosis with chronic mild anterior wedging of a midth oracic vertebral body. No acute osseous abnormality. 2. Mild bilateral hip and sacroiliac osteoarthritis. IMPRESSION: 1. Mild thoracolumbar spondylosis with chronic mild anterior wedging of a midth oracic vertebral body. No acute osseous abnormality. 2. Mild bilateral hip and sacroiliac osteoarthritis.
== END 2024-07-03 12:51 | disposition home or self-care (01) ==
PROVIDERS: PCP Internal Medicine; Visit Provider Internal Medicine
DX: M16.0 Bilateral primary osteoarthritis of hip (principal); M53.3 Sacrococcygeal disorders, not elsewhere classified; M47.895 Other spondylosis, thoracolumbar region
CPT/HCPCS: 72072; 72100; 73502

== ENCOUNTER 2025-01-14 09:36 | Outpatient (CLI) | payer MEDICARE, SELFPAY ==
--- OUTSIDE RECORDS SUMMARY | 2025-01-14 10:21 | XMS_ITS | Referral Summary ---
Author Organization [facility] Address [address] [place] [address] Phone Care Team Providers Care Mounter Flutes And Piccolos Name Role Phone Michael Blackmon MD Unavailable Duglas Dumont MD Primary Care Provider [phone] Encounters Date Type Department Care Team Description 12/16/2024 2:45 PM FOOD COUNTER ATTENDANT Office Visit [facility] Cardiology at [address] [place] [address] Patrice Posadas MD Hx of CABG (Primary Dx); SAH (subarachnoid hemorrhage) (HCC); Subdural hematoma (HCC) 10/28/2024 3:30 PM FOOD COUNTER ATTENDANT - 10/28/2024 5:00 PM FOOD COUNTER ATTENDANT Surgery [facility] Operating Room [address] [place] [phone] Naseem Ochoa MD Right Periclavicular Incision for Untying of Shunt 10/28/2024 2:03 PM FOOD COUNTER ATTENDANT - 10/28/2024 5:16 PM FOOD COUNTER ATTENDANT Hospital Encounter [facility] Operating Room [address] [place] [phone] Naseem Ochoa MD Discharge Disposition: Discharge to home or self care 10/25/2024 Telephone [facility] with [facility] [address] [place] [address] Angelina Kerr RN 10/25/2024 10:13 AM FOOD COUNTER ATTENDANT - 10/25/2024 11:59 PM FOOD COUNTER ATTENDANT Hospital Encounter [facility] - Imaging [address] [place] [id number] Subdural hemorrhage (HCC) Discharge Disposition: Discharge to home or self care 10/25/2024 12:00 PM FOOD COUNTER ATTENDANT Office Visit [facility] with [facility] [address] [place] [address] Naseem Ochoa MD Subdural hemorrhage (HCC) (Primary Dx); Communicating hydrocephalus (HCC) from Last 3 Months Allergies No known active allergies Medications cetirizine (ZyrTEC) 10 mg tablet Take 1 tablet (10 mg total) by mouth nightly Active multivitamin with folic acid 400 mcg tablet Take 1 tablet by mouth daily 4 Active metoprolol tartrate (LOPRESSOR) 25 mg immediate release tablet Take 1 tablet (25 mg total) by mouth 2 (two) times a day Active acetaminophen (TYLENOL) 325 mg tablet Take 2 tablets (650 mg total) by mouth every 6 (six) hours as needed for pain, fever or headaches Active atorvastatin (LIPITOR) 40 mg tablet Take 1 tablet (40 mg total) by mouth nightly Active famotidine (PEPCID) 20 mg tablet Take 1 tablet (20 mg total) by mouth nightly Active valsartan-hydro chlorothiazide (DIOVAN-HCT) 320-12.5 mg per tablet Take 1 tablet by mouth daily Active amLODIPine (NORVASC) 5 mg tablet Take 1 tablet (5 mg total) by mouth daily 4 12/17/19 25 Discontinu ed(Therapy completed) hydroCHLOROthia zide (HYDRODIURIL) 25 mg tablet Take 0.5 tablets (12.5 mg total) by mouth daily 4 12/17/19 25 Discontinu ed(Therapy completed) losartan (COZAAR) 100 mg tablet Take 1 tablet (100 mg total) by mouth daily 4 12/17/19 25 Discontinu ed(Therapy completed) mupirocin (BACTROBAN) 2 % ointment Apply to each nostril 2 (two) times a day Use pea size amount in each nostril twice daily for 5 days prior to surgery day. After application, press sides of nose together and gently massage. 22 g 5 12/17/19 25 Discontinu ed(Therapy completed) oxyCODONE-aceta minophen (PERCOCET) 5-325 mg per tabletIndicatio ns:Pain Take 1 tablet by mouth every 4 (four) hours as needed for pain 10 tablet 5 12/17/19 25 Discontinu ed(Therapy completed) Active Problems Problem Noted Date Diagnosed Date Acute pain 09/17/2024 Assessment & Plan (09/17/2024 2:07 PM FOOD COUNTER ATTENDANT): -multimodal pain control Discharge planning issues 09/17/2024 Assessment & Plan (09/17/2024 2:07 PM FOOD COUNTER ATTENDANT): -09/17 Admission Treatment note needed CM pending CAD (coronary artery disease) 09/17/2024 Assessment & Plan (09/17/2024 2:08 PM FOOD COUNTER ATTENDANT): #HTN #HLD - Hold home ASA - Resume home metoprolol, atorvastatin Subdural hemorrhage 09/17/2024 Subdural hematoma 10/11/2023 Assessment & Plan (09/17/2024 2:06 PM FOOD COUNTER ATTENDANT): # Outpatient follows with Dr. 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 Aneurysm coiling with chronic encephalomalacia - Repeat CT head with stable size of SDH - Neurosurgery on board. Recommend no indication for acute neurosurgical intervention, but want CT head prior to discharge-- showed right occipital approach ventricular shunt catheter with tip terminating in the body of left lateral ventricle, increased prominence of ventriculomegaly of the lateral ventricles. Discussed with neurosurgery. 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 Ochoa, 07/28/2023) c/b bilateral EVDs placed on 09/14, RP VPS (Strata 1.5) - PRICE CHANGER shunt series on admission: Right parietal approach ventriculoperitoneal shunt catheter terminates in the right hemiabdomen without kinking or catheter discontinuity. - NSGY adjusted strata valve to 2.0 on 10/11 PM -CT head prior to discharge, as above Altered mental status 10/11/2023 Assessment & Plan (10/20/2023 10:22 AM FOOD COUNTER ATTENDANT): Pts states he started speaking 1-2 weeks ago. She states baseline is around A&Ox 1-2 however mentation waxes and wanes. She brought him to the hospital due to concerns of increased confusion, somnolence. Has been waxing/waning inpatient without focal neurologic findings, concern for delirium, subclinical seizure activity and postictal state, nutritional vs other toxic/metabolic etiology. Infectious workup unrevealing. - Electrolytes are WNL. CXR: negative for pneumonia. UA: no evidence of infection - c/f nutrition status: B12, folate and thiamine levels wnl - CT head with SDH present which was stable in size on repeat CT head; NSGY evaluated with no concern for shunt malfunction - after further discussion with family, NSGY would like to evaluate for complex partial seizure activity and recommended EEG and keppra load -EEG performed without evidence of seizure activity -decrease to keppra 500 mg BID -delirium precautions -patient currently back to baseline Dislodged gastrostomy tube 10/11/2023 Assessment & Plan (10/16/2023 12:38 PM FOOD COUNTER ATTENDANT): - On physical exam, gtube appears to be dislodged. - No signs or symptoms of peritonitis. No leukocytosis, no pain on palpation of abdomen. - notes he has been eating and drinking though intake has been very limited recently with her needing to force him to eat - CONTAINER FINISHER evaluation: regular diet with thin liquids - RD c/s: patient eating approx 25% of required calories, tolerating ramp up of TF to goal today - G-tube functional at this time HTN (hypertension) 10/11/2023 Assessment & Plan (10/11/2023 2:26 AM FOOD COUNTER ATTENDANT): - Continue home amlodipine 10mg daily, losartan 50mg BID and metoprolol 12.5mg BID Hydrocephalus 09/13/2023 Acute hypoxemic respiratory failure 08/25/2023 SAH (subarachnoid hemorrhage) 07/28/2023 Prostate cancer 09/07/2021 Overview (09/07/2021): Added automatically from request for surgery [id number] Elevated PSA 01/25/2019 Overview (01/25/2019): Added automatically from request for surgery [id number] 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 Immunizations Immunization Administration Dates Next Due Influenza, Quadrivalent, Hig h Dose, Preservative Free, Intrr 08/23/2023 Influenza, Trivalent, High D ose, Split, Preservative Free, Intramuscular 09/20/2024 Pfizer SARS-CoV-2 Monovalent Vaccination (12+ Yrs) PURPLE 09/15/2022 Social History Tobacco Use Types Packs/Day Years Used Date Smoking Tobacco: Never Smokeless Tobacco: Never Tobacco Cessation:Counseling Given: Not Answered Alcohol Use Standard Drinks/Week Comments Yes 5 (1 standard drink = 0.6 oz pur e alcohol) [facility] [email or web address] Answer Date Recorded In the past 12 months has e [employer], gas, oil, or water DFine threatened to shut off services in your home? No 09/28/2024 Social Connection and Isolat ion Panel [NHANES] Answer Date Recorded In a typical week, how many times do you talk on the phone with family, friends, or neighbors? More than three times a week 09/28/2024 How often do you get togethe r with friends or relatives? More than three times a week 09/28/2024 How often do you attend chur ch or tenriism services? Never 09/28/2024 Do you belong to any clubs o r organizations such as orthodox groups, unions, fraternal or athletic groups, or school groups? No 09/28/2024 How often do you attend meet ings of the clubs or organizations you belong to? Never 09/28/2024 Are you , , di vorced, , never , or living with a partner? 09/28/2024 AUDIT-C Answer Date Recorded Q1: How often do you have a drink containing alc ohol? 2-3 times a week 10/25/2024 Q2: How many drinks containi ng alcohol do you have on a typical day when you are drinking? 1 or 2 10/25/2024 Q3: How often do you have si x or more drinks on one occasion? Never 10/25/2024 Overall Financial Resource Strain (CARDIA) Answe r Date Recorded How hard is it for you to pa y for the very basics like food, housing, medical care, and heating? Not hard at all 09/28/2024 PHQ-2 Answer Date Recorded PHQ-2 Total Score 0 10/13/2023 Hunger Vital Sign Answer Date Recorded Within the past 12 months, y ou worried that your food would run out before you got the money to buy more. Never true 09/28/20 24 Within the past 12 months, t he food you bought just didn't last and you didn't have money to get more. Never true 09/28/2024 PRAPARE - Transportation Answer Date Re corded In the past 12 months, has l ack of transportation kept you from medical appointments or from getting medications? No 09/15 In the past 12 months, has l ack of transportation kept you from meetings, work, or from getting things needed for daily living? No 09/28/2024 Housing Stability Vital Sign Answer Frederick e Recorded In the last 12 months, was t here a time when you were not able to pay the mortgage or rent on time? No 10/13/2023 In the last 12 months, how many places have you lived? 1 10/13/2023 In the last 12 months, was t here a time when you did not have a steady place to sleep or slept in a fpc (including now)? No 10/13/2023 Housing Stability Vital Sign Answer Frederick e Recorded In the last 12 months, was t here a time when you were not able to pay the mortgage or rent on time? No 09/28/2024 In the past 12 months, how m any times have you moved where you were living? 0 09/28/2024 At any time in the past 12 m [place], were you homeless or living in a fpc (including now)? No 09/28/2024 Personal Safety Answer Date Recorded Have you ever been in or are you currently in a harmful physical or emotional relationship or is someone making you feel afraid or unsafe? Denies 10/28/2024 Sex and Gender Information Value Date Recorded Sex Assigned at Not on file Legal Sex Male 12:22 AM FOOD COUNTER ATTENDANT Gender Identity Male 11/23/2023 9:04 AM FOOD COUNTER ATTENDANT Sexual Orientation Not on file Last Filed Vital Signs Vital Sign Reading Time Taken Comments Blood Pressure 134/84 12/16/2024 2:56 PM FOOD COUNTER ATTENDANT Pulse 67 12/16/2024 2:56 PM FOOD COUNTER ATTENDANT Temperature 36.7 C (98 F) 10/28/2024 4:35 PM FOOD COUNTER ATTENDANT Respiratory Rate 17 10/28/2024 4:35 PM FOOD COUNTER ATTENDANT Oxygen Saturation 97% 12/16/2024 2:56 PM FOOD COUNTER ATTENDANT Inhaled Oxygen Concentration - - Weight 97.5 kg (215 lb) 12/16/2024 2:56 PM FOOD COUNTER ATTENDANT Height 182.9 cm (6') 12/16/2024 2:56 PM FOOD COUNTER ATTENDANT Body Mass Index 29.16 12/16/2024 2:56 PM FOOD COUNTER ATTENDANT Plan of Treatment Not on file Medical Devices Implanted Type Area Operational Review Sergeant Device Identifier Shelf Expiration Date Model / Serial / Lot Medtronic Inc Strata Ii Csf Programmable Flow Control Ball Spring Mechanism [id number] - [id number] Implanted:Qty: 1 on 09/14/2023 by Naseem Ochoa MD at [facility] Shunt Right: Cranial Medtronic Inc 01/08/2026 [id number] / / [id number] [employer] Hydroframe Hydrocoil V-Trak 4mm 5cm 10 Coil Advance Delivery 8503-6426 - [id number] Implanted:Qty: 1 on 07/28/2023 at [facility] [employer] 02/13/2028 [id number] / / [id number] [employer] Hydrosoft 2mm 3cm 3d Coil Embolization 7962-6890 - [id number] Implanted:Qty: 1 on 07/28/2023 at [facility] [employer] 03/15/2026 [id number] / / [id number] 99[employer] Hydrosoft 1.5mm 3cm 3d Coil Embolization 2773-1528 - [id number] Implanted:Qty: 1 on 07/28/2023 at [facility] [employer] 12/14/2027 7805-0366 / / [id number] Newtron Angio-Seal Vip 6fr Closere Device [id number] - [id number] Implanted:Qty: 1 on 07/28/2023 at [facility] Newtron 03/22/2024 [id number] / / [id number] Newtron Angio-Seal Vip 6fr Closere Device [id number] - [id number] Implanted:Qty: 1 on 08/07/2023 [facility] [id number] / / [id number] Medtronic Inc Input Ts 9fr 11cm .038in Dual Distal J Curve Introducer Sheath [id number] - [id number] Implanted:Qty: 1 on 09/14/2023 by Naseem Ochoa MD at [facility] Right: Cranial Medtronic Inc 10/19/2024 [id number] / / [id number] Medtronic Inc Lance .25cm .13cm 120cm Antibiotic Impregnated Peritoneal Catheter 87094 - [id number] Implanted:Qty: 1 on 09/14/2023 by Naseem Ochoa MD at [facility] Right: Cranial Medtronic Inc [id number] 10/25/2024 [id number] / / [id number] Procedures Procedure Name Priority Date/Time Associated Diagnosis Comments REVISION SHUNT 10/28/2024 4:01 PM FOOD COUNTER ATTENDANT Communicating hydrocephalus (HCC) CT HEAD WO CONTRAST Schedule Routine, Read Routine (OP Routine) 10/25/2024 10:34 AM FOOD COUNTER ATTENDANT Subdural hemorrhage (HCC) PSA DIAGNOSTIC Routine 04/27/2019 from Last 3 Months or Most Recently Relevant to Health Maintenance Results * CT Head WO Contrast (10/25/2024 10:34 AM FOOD COUNTER ATTENDANT) Anatomical Region Laterality Modality Head and Neck N/A Computed Tomogra phy 10/25/2024 10:4 4 AM FOOD COUNTER ATTENDANT Impressions 10/25/2024 1:06 PM FOOD COUNTER ATTENDANT 1. Interval resolution of pneumocephalus with improvement in right frontal convexity subdural hemorrhage, nearly completely resolved. Developing bifrontal encephalomalacia 2. Interval enlargement of shunted ventricular system consistent with hydrocephalus 3. Interval development of edema along the shunt tract which can be seen secondary to CSF leak along the catheter or infected catheter Dictated by: Naseem Lopez M.D. The radiology attending physician has personally reviewed this study, and had reviewed and/or edited this written report and agrees with it. Electronically signed by: Raquel Bae M.D. Narrative 10/25/2024 1:06 PM FOOD COUNTER ATTENDANT EXAMINATION: CT head without contrast HISTORY: 69 years-old Male with Subdural hemorrhage. Follow-up imaging. TECHNIQUE: CT of the head was performed with images acquired from skull base to vertex without intravenous contrast. COMPARISON: Multiple prior CTs of the head, most recently 09/26/2024. FINDINGS: Interval resolution of pneumocephalus. Postsurgical changes right frontal convexity eduardo holes related to subdural evacuation. Trace amount of residual subdural hemorrhage along the right frontal convexity subjacent to the eduardo holes, nearly completely resolved. Similar approach right parietal ventriculostomy catheter with interval enlargement of the ventricular system relative to most recent imaging dated 09/26/2024. Edema/fluid noted along the ventriculostomy catheter tract, intervally increased. Additionally, there is developing encephalomalacia in the anterior right greater than left frontal lobes. No new areas of hemorrhage or worsening mass effect. Interval resolution of previously demonstrated midline shift. The gaffney-white matter differentiation is otherwise normal. The visualized portions of the orbits are normal. The visualized portions of the mastoids are normal. The visualized portions of the paranasal sinuses are normal. No interval calvarial fracture. Procedure Note Raquel aBe MD - 10/25/2024 EXAMINATION: CT head without contrast HISTORY: 69 years-old Male with Subdural hemorrhage. Follow-up imaging. TECHNIQUE: CT of the head was performed with images acquired from skull base to vertex without intravenous contrast. COMPARISON: Multiple prior CTs of the head, most recently 09/26/2024. FINDINGS: Interval resolution of pneumocephalus. Postsurgical changes right frontal convexity eduardo holes related to subdural evacuation. Trace amount of residual subdural hemorrhage along the right frontal convexity subjacent to the eduardo holes, nearly completely resolved. Similar approach right parietal ventriculostomy catheter with interval enlargement of the ventricular system relative to most recent imaging dated 09/26/2024. Edema/fluid noted along the ventriculostomy catheter tract, intervally increased. Additionally, there is developing encephalomalacia in the anterior right greater than left frontal lobes. No new areas of hemorrhage or worsening mass effect. Interval resolution of previously demonstrated midline shift. The gaffney-white matter differentiation is otherwise normal. The visualized portions of the orbits are normal. The visualized portions of the mastoids are normal. The visualized portions of the paranasal sinuses are normal. No interval calvarial fracture. IMPRESSION: 1. Interval resolution of pneumocephalus with improvement in right frontal convexity subdural hemorrhage, nearly completely resolved. Developing bifrontal encephalomalacia 2. Interval enlargement of shunted ventricular system consistent with hydrocephalus 3. Interval development of edema along the shunt tract which can be seen secondary to CSF leak along the catheter or infected catheter Dictated by: Naseem Lopez M.D. The radiology attending physician has personally reviewed this study, and had reviewed and/or edited this written report and agrees with it. Electronically signed by: Raquel Bae M.D. us Naseem Ochoa MD IM CT PROCEDURES Final Resul t * PSA diagnostic (04/27/2019) SCRIBED PSA, Serum PSA = 5.27 0 - 4 EXTERNAL LAB Blood specimen (specimen) Narrative EXTERNAL LAB - 04/27/2019 A/S since Feb, 2019 PSA = 5.27 us Historical Provider LAB BLOOD ORDERABLES Isabella quick Result EXTERNAL LAB from Last 3 Months or Most Recently Relevant to Health Maintenance Insurance [facility] MEDICARE [place] MEDICARE SUPPLEMENT MEDICARE [place] MED[place] SUPPLEMENT Advance Directives For more information, please contact: [phone] * Full Code (Latest Code Status on File) Date Activated Date Inactivated Comments 09/26/2024 6:08 PM 09/30/2024 8:00 PM * Full Code Date Activated Date Inactivated Comments 09/25/2024 9:36 PM 09/26/2024 6:08 PM * Full Code Date Activated Date Inactivated Comments 09/17/2024 5:47 PM 09/20/2024 10:03 PM * Full Code Date Activated Date Inactivated Comments 10/11/2023 2:24 AM 10/20/2023 8:48 PM * Full Code Date Activated Date Inactivated Comments 09/13/2023 9:35 PM 09/18/2023 7:38 PM Healthcare Agents on File Name Relationship Healthcare Agent Relationship Communication Chayo Arana Spouse Health Care Agent [email or web address] Norah Arana Daughter First Alternate Health Care Agent Care Teams Mounter [employer]col[employer] Relationship Specialty Start Date End Date Duglas Dumont MD [address] [facility] [address] [place] [address] PCP - General Internal Medicine 10/12/23 [place] [address] [place] [address] [place] [id number] Consulting Physician Urology 11/19/21
--- OUTSIDE RECORDS SUMMARY | 2025-01-14 10:21 | XMS_ITS | Encounter Summary ---
Author Organization [facility] Healthcare Address [address] [place] [address] Care Team Providers Care Construction Engineer Name Role Phone Michael Blackmon MD Unavailable [phone] Duglas Dumont MD Primary Care Provider [phone] Encounter Details Date Type Department Care Team (Late st Contact Info) Description 09/20/2024 Documentation [facility] [address] [place] [address] Alexey Hemphill RN Social History Tobacco Use Types Packs/Day Years Used Date Smoking Tobacco: Never Cigarettes Smokeless Tobacco: Never Alcohol Use Standard Drinks/Week Comments Yes 5 (1 standard drink = 0.6 oz pur e alcohol) [facility] Utilities Answer Date Recorded In the past 12 months has [place], gas, oil, or water [employer] threatened to shut off services in your home? No 10/13/2023 Social Connection and Isolation Panel [NHANES] A nswer Date Recorded In a typical week, how many times do you talk on the phone with family, friends, or neighbors? Three times a week 10/13/2023 How often do you get togethe r with friends or relatives? Three times a week 10/13/2023 How often do you attend [facility] or adventist services? Never 10/13/2023 Do you belong to any clubs o r organizations such as bahai groups, unions, fraternal or athletic groups, or school groups? No 10/13/2023 How often do you attend meet ings of the clubs or organizations you belong to? Never 10/13/2023 Are you , , di vorced, , never , or living with a partner? 10/13/2023 AUDIT-C Answer Date Recorded Q1: How often do you have a drink containing alc ohol? 2-4 times a month 12/14/2023 Q2: How many drinks containi ng alcohol do you have on a typical day when you are drinking? 1 or 2 12/14/2023 Q3: How often do you have si x or more drinks on one occasion? Never 12/14/2023 Overall Financial Resource Strain (CARDIA) Answe r Date Recorded How hard is it for you to pa y for the very basics like food, housing, medical care, and heating? Not hard at all 10/13/2023 PHQ-2 Answer Date Recorded PHQ-2 Total Score 0 10/13/2023 Hunger Vital Sign Answer Date Recorded Within the past 12 months, y ou worried that your food would run out before you got the money to buy more. Never true 10/13/20 23 Within the past 12 months, t he food you bought just didn't last and you didn't have money to get more. Never true 10/13/2023 PRAPARE - Transportation Answer Date Re corded In the past 12 months, has l ack of transportation kept you from medical appointments or from getting medications? No 09/16 In the past 12 months, has l ack of transportation kept you from meetings, work, or from getting things needed for daily living? No 10/13/2023 Housing Stability Vital Sign Answer [...] place to sleep or slept in a fdc (including now)? No 10/13/2023 Personal Safety Answer Date Recorded Have you ever been in or are you currently in a harmful physical or emotional relationship or is someone making you feel afraid or unsafe? Denies 09/17/2024 Sex and Gender Information Value Date Recorded Sex Assigned at Not on file Legal Sex Male 12:22 AM PROBATE JUDGE Gender Identity Male 11/23/2023 9:04 AM PROBATE JUDGE Sexual Orientation Not on file documented as of this encounter Plan of Treatment Not on file documented as of this encounter Visit Diagnoses Not on filedocumented in this encounter Additional Health Concerns Infection Onset Date Last Indicated Resolved Time Ring Surveillance Comment:Ruthie auris ring surveillance 09/18/2024 09/18/20242023 7:22 AM PROBATE JUDGE documented as of this encounter Care Teams Construction Engineer Relationship Specialty Start Date End Date Duglas Dumont MD [id number] [place] [address] PCP - General Internal Medicine 10/12/23 [place] [id number] [place] [address] Consulting Physician Urology 11/19/21 documented as of this encounter
--- OUTSIDE RECORDS SUMMARY | 2025-01-14 10:21 | XMS_ITS ---
Author Organization [facility] Address [address] [place] [address] Phone Care Team Providers Care Cant Gang Sawyer Name Role Phone Michael Blackmon MD Unavailable Duglas Dumont MD Primary Care Provider [phone] Active Problems Problem Noted Date Diagnosed Date Acute pain 09/17/2024 Assessment & Plan (09/17/2024 2:07 PM COAL PIPELINE OPERATOR): -multimodal pain control Discharge planning issues 09/17/2024 Assessment & Plan (09/17/2024 2:07 PM COAL PIPELINE OPERATOR): -09/17 Admission Treatment note needed CM pending CAD (coronary artery disease) 09/17/2024 Assessment & Plan (09/17/2024 2:08 PM COAL PIPELINE OPERATOR): #HTN #HLD - Hold home ASA - Resume home metoprolol, atorvastatin Subdural hemorrhage 09/17/2024 Subdural hematoma 10/11/2023 Assessment & Plan (09/17/2024 2:06 PM COAL PIPELINE OPERATOR): # Outpatient follows with Dr. 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 Ochoa, 07/28/2023) c/b bilateral EVDs placed on 09/14, RP VPS (Strata 1.5) - PERSONAL SERVICE REPRESENTATIVE shunt series on admission: Right parietal approach ventriculoperitoneal shunt catheter terminates in the right hemiabdomen without kinking or catheter discontinuity. - NSGY adjusted strata valve to 2.0 on 10/11 PM -CT head prior to discharge, as above Altered mental status 10/11/2023 Assessment & Plan (10/20/2023 10:22 AM COAL PIPELINE OPERATOR): Pts states he started speaking 1-2 weeks [...] 10/11/2023 Assessment & Plan (10/16/2023 12:38 PM COAL PIPELINE OPERATOR): - On physical exam, gtube appears to be dislodged. - No signs or symptoms of peritonitis. No leukocytosis, no pain on palpation of abdomen. - notes he has been eating and drinking though intake has been very limited recently with her needing to force him to eat - SHANK ARCHER evaluation: regular diet with thin liquids - RD c/s: patient eating approx 25% of required calories, tolerating ramp up of TF to goal today - G-tube functional at this time HTN (hypertension) 10/11/2023 Assessment & Plan (10/11/2023 2:26 AM COAL PIPELINE OPERATOR): - Continue home amlodipine 10mg daily, losartan 50mg BID and metoprolol 12.5mg BID Hydrocephalus 09/13/2023 Acute hypoxemic respiratory failure 08/25/2023 SAH (subarachnoid hemorrhage) 07/28/2023 Prostate cancer 09/07/2021 Overview (09/07/2021): Added automatically from request for surgery [id number] Elevated PSA 01/25/2019 Overview (01/25/2019): Added automatically from request for surgery [id number] 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 Past Treatment and Therapy Plans No past plan information found. Lifetime Dose Tracking * Chemical Lifetime Dose Automatic Entry Manual Entr y Fluoro Time 68.6 minutes 68.6 minutes 0 minutes Air kerma at the reference point (Ka,r) 7,402 mGy 7 ,402 mGy 0 mGy DLP 27,010.12 mGycm 27,010.12 mGycm 0 mGycm
--- OUTSIDE RECORDS SUMMARY | 2025-01-14 10:21 | XMS_ITS | Clinical Summary ---
Author Organization [facility] Address [address] [place] [address] Care Team Providers Care City Editor Name Role Phone Unavailable Primary Care Provider Unavailabl e Allergies No known active allergies Medications acetaminophen (TYLENOL) 325 MG tablet 2 tablets (650 mg total) by PO/Per Tube route every 6 (six) hours as needed for mild pain, moderate pain or Temp > or equal to 101F (38.3C). 09/13/20 Active amantadine (SYMMETREL) 100 MG capsule 1 capsule (100 mg total) by PO/Per Tube route in the morning and 1 capsule (100 mg total) before bedtime. 09/13/20 Active amLODIPine (NORVASC) 10 MG tablet Administer 1 tablet (10 mg total) per tube in the morning. 09/13/20 Active atorvastatin (LIPITOR) 40 MG tablet 1 tablet (40 mg total) by PO/Per Tube route nightly. 09/13/20 Active famotidine (PEPCID) 20 MG tablet 1 tablet (20 mg total) by PO/Per Tube route in the morning and 1 tablet (20 mg total) before bedtime. 09/13/20 Active Heparin Sodium, Porcine, (heparin, porcine,) 5000 UNIT/ML injectionIndication s:Prophylaxis of Venous Thromboembolism Inject 1 mL (5,000 Units total) under the skin 3 (three) times a day Indications: Prevention of Unwanted Clot in Veins. 09/13/20 Active losartan (COZAAR) 50 MG tablet 1 tablet (50 mg total) by PO/Per Tube route in the morning and 1 tablet (50 mg total) before bedtime. 09/13/20 Active metoprolol tartrate (LOPRESSOR) 50 MG tablet 1 tablet (50 mg total) by PO/Per Tube route in the morning and 1 tablet (50 mg total) before bedtime. 09/13/20 23 Active Active Problems Problem Noted Date Diagnosed Date Acute hypoxemic respiratory failure 08/25/2023 Immunizations Immunization Administration Dates Next Due Influenza, Unspecified 07/16/2023(Deferr ed: Patient not in facility during flu season - patient hasd gotten it family does not not have) Pfizer SARS-CoV-2 Vaccination 09/15/2022 Social History Tobacco Use Types Packs/Day Years Used Date Smoking Tobacco: Never Smokeless Tobacco: Never Tobacco Cessation:Counseling Given: Not Answered Alcohol Use Standard Drinks/Week Comments Yes 0 (1 standard drink = 0.6 oz pure alcohol) wine and burban on the weekends Sex and Gender Information Value Date Recorded Sex Assigned at Not on file Legal Sex Male 10:07 AM EST Gender Identity Not on file Sexual Orientation Not on file Last Filed Vital Signs Vital Sign Reading Time Taken Comments Blood Pressure 150/97 09/13/2023 10:31 AM FRONT EDGER Pulse 97 09/13/2023 10:31 AM FRONT EDGER Temperature 37 C (98.6 F) 09/13/2023 8:27 AM FRONT EDGER Respiratory Rate 15 09/13/2023 8:27 AM FRONT EDGER Oxygen Saturation 97% 09/13/2023 6:00 PM FRONT EDGER Inhaled Oxygen Concentration - - Weight 100.7 kg (222 lb) 09/08/2023 4:00 AM FRONT EDGER Height 182.9 cm (6') 08/25/2023 5:30 PM FRONT EDGER Body Mass Index 30.11 08/25/2023 5:30 PM FRONT EDGER Plan of Treatment Health Maintenance Due Date Last Done Comments CT Colonography 1957 Colonoscopy 1957 Colorectal Cancer Screening 1957 FIT-DNA (Cologuard) 1957 FIT 1957 FOBT 1957 Sigmoidoscopy 1957 Annual Visit Topic 1958 DTaP/Tdap/Td Vaccines (1 - Tdap) 02/17/1964 Hepatitis C Screening 1975 Pneumococcal Vaccine: 65+ Ye ars (1 of 4 - PCV) 2007 HIB Vaccines Aged Out No longer eligi ble based on patient's age to complete this topic HPV Vaccines Aged Out No longer eligi ble based on patient's age to complete this topic Hepatitis A Vaccines Aged Out No long er eligible based on patient's age to complete this topic Hepatitis B Vaccines Aged Out No long er eligible based on patient's age to complete this topic IPV Vaccines Aged Out No longer eligi ble based on patient's age to complete this topic Meningococcal Vaccine Aged Out No nolberto trev eligible based on patient's age to complete this topic Advance Directives * Full Resuscitation (Latest Code Status on File) Date Activated Date Inactivated Comments 08/25/2023 7:20 PM 09/14/2023 12:07 PM Question Answer Comments I have discussed this order with the patient or his/her surrogate and have received informed consent. Yes
--- OUTSIDE RECORDS SUMMARY | 2025-01-14 10:21 | XMS_ITS | Clinical Summary ---
Author Organization [facility] Address [address] [facility] [address] [place] [address] Phone Care Team Providers Care Boat Garnisher Name Role Phone Michael Blackmon MD Unavailable [phone] Duglas Dumont MD Primary Care Provider [phone] Allergies No known active allergies Medications cetirizine [...] 09/17/2024 Assessment & Plan (09/17/2024 2:07 PM WORKFORCE DEVELOPMENT VICE PRESIDENT): -multimodal pain control Discharge planning issues 09/17/2024 Assessment & Plan (09/17/2024 2:07 PM WORKFORCE DEVELOPMENT VICE PRESIDENT): -09/17 Admission Treatment note needed CM pending CAD (coronary artery disease) 09/17/2024 Assessment & Plan (09/17/2024 2:08 PM WORKFORCE DEVELOPMENT VICE PRESIDENT): #HTN #HLD - Hold home ASA - Resume home metoprolol, atorvastatin Subdural hemorrhage 09/17/2024 Subdural hematoma 10/11/2023 Assessment & Plan (09/17/2024 2:06 PM WORKFORCE DEVELOPMENT VICE PRESIDENT): # Outpatient follows with Dr. 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 Ochoa, 07/28/2023) c/b bilateral EVDs placed on 09/14, RP VPS (Strata 1.5) - FORESTRY TECHNICIAN shunt series on admission: Right parietal approach ventriculoperitoneal shunt catheter terminates in the right hemiabdomen without kinking or catheter discontinuity. - NSGY adjusted strata valve to 2.0 on 10/11 PM -CT head prior to discharge, as above Altered mental status 10/11/2023 Assessment & Plan (10/20/2023 10:22 AM WORKFORCE DEVELOPMENT VICE PRESIDENT): Pts states he started speaking 1-2 weeks [...] 10/11/2023 Assessment & Plan (10/16/2023 12:38 PM WORKFORCE DEVELOPMENT VICE PRESIDENT): - On physical exam, gtube appears to be dislodged. - No signs or symptoms of peritonitis. No leukocytosis, no pain on palpation of abdomen. - notes he has been eating and drinking though intake has been very limited recently with her needing to force him to eat - SUPERVISOR CAPACITOR PROCESSING evaluation: regular diet with thin liquids - RD c/s: patient eating approx 25% of required calories, tolerating ramp up of TF to goal today - G-tube functional at this time HTN (hypertension) 10/11/2023 Assessment & Plan (10/11/2023 2:26 AM WORKFORCE DEVELOPMENT VICE PRESIDENT): - Continue home amlodipine 10mg daily, losartan 50mg BID and metoprolol 12.5mg BID Hydrocephalus 09/13/2023 Acute hypoxemic respiratory failure 08/25/2023 SAH (subarachnoid hemorrhage) 07/28/2023 Prostate cancer 09/07/2021 Overview (09/07/2021): Added automatically from request for surgery [id number] Elevated PSA 01/25/2019 Overview (01/25/2019): Added automatically from request for surgery [id number] 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 Encounters Date Type Department Care Team Description 12/16/2024 2:45 PM WORKFORCE DEVELOPMENT VICE PRESIDENT Office Visit [facility] Cardiology at [address] [place] [id number] Patrice Posadas MD Hx of CABG (Primary Dx); SAH (subarachnoid hemorrhage) (HCC); Subdural hematoma (HCC) 10/28/2024 3:30 PM WORKFORCE DEVELOPMENT VICE PRESIDENT - 10/28/2024 5:00 PM WORKFORCE DEVELOPMENT VICE PRESIDENT Surgery [facility] Operating Room [facility] [place] [address] Naseem Ochoa MD Right Periclavicular Incision for Untying of Shunt 10/28/2024 2:03 PM WORKFORCE DEVELOPMENT VICE PRESIDENT - 10/28/2024 5:16 PM WORKFORCE DEVELOPMENT VICE PRESIDENT Hospital Encounter [facility] Operating Room [facility] [place] [id number] Naseem Ochoa MD Discharge Disposition: Discharge to home or self care 10/25/2024 12:00 PM WORKFORCE DEVELOPMENT VICE PRESIDENT Office Visit [facility] with [facility] [address] [place] [address] Naseem Ochoa MD Subdural hemorrhage (HCC) (Primary Dx); Communicating hydrocephalus (HCC) 10/25/2024 10:13 AM WORKFORCE DEVELOPMENT VICE PRESIDENT - 10/25/2024 11:59 PM WORKFORCE DEVELOPMENT VICE PRESIDENT Hospital Encounter [facility] - Imaging [address] [place] [phone] Subdural hemorrhage (HCC) Discharge Disposition: Discharge to home or self care 10/25/2024 Telephone [facility] with [facility] [address] [place] [address] Angelina Kerr RN from Last 3 Months Immunizations Immunization Administration Dates Next Due Influenza, Quadrivalent, Hig h Dose, Preservative Free, Intrr 08/23/2023 Influenza, Trivalent, High D ose, Split, Preservative Free, Intramuscular 09/20/2024 Pfizer SARS-CoV-2 Monovalent Vaccination (12+ Yrs) PURPLE 09/15/2022 Surgical History Surgery Date Site/Laterality Comments TONSILECTOMY, ADENOIDECTOMY, BILATERAL MYRINGOTOMY AND TUBES VASECTOMY 2002 CORONARY ARTERY BYPASS GRAFT 06/04/2018 x 2: GARZA to LAD, free Left radial deandre OM 1 ANGIO SELECTIVE INTERNAL CAROTID LEFT 08/02/2023 Left ANGIO SELECTIVE CAROTID GENERAL DISTILLERY WORKER RIGHT 08/07/2023 Right ANGIO SELECTIVE INTERNAL CAROTID LEFT 08/10/2023 Left IR G TUBE PLACEMENT PERCUTANEOUS 08/17/2023 N/A PROSTATECTOMY 11/16/2021 - 12/13/2021 Bilateral w/ bilat LND TRACHEOSTOMY 08/15/2023 GASTROSTOMY TUBE PLACEMENT EDUARDO HOLE FOR SUBDURAL HEMATOMA 09/26/2024 Medical History Medical History Date Comments Hypertension GERD (gastroesophageal reflux disease) History of heart attack Allergic rhinitis Cancer (HCC) Prostate Heart disease Motion sickness Aneurysm Stroke (HCC) Acom aneurysm 07/27/23 Family History Medical History Relation Name Comments Cancer Brother 1 prostate Heart disease Brother 2 CAD No Known Problems Daughter Heart disease Father CHF Heart failure Father CHF Cancer Mother Breast Cancer Heart disease Mother Breast Cancer No Known Problems Sister Anesthesia problems Neg Hx Malig Hypertension Neg Hx Malig Hyperthermia Neg Hx Pseudochol deficiency Neg Hx Relation Name Status Comments Brother 1 prostate Alive Brother 2 CAD Daughter Father CHF (Age 61) Mother Breast Cancer (Age 83) Sister Social History Tobacco Use Types Packs/Day Years Used Date Smoking Tobacco: Never Smokeless Tobacco: Never Tobacco Cessation:Counseling Given: Not Answered Alcohol Use Standard Drinks/Week Comments Yes 5 (1 standard drink = 0.6 oz pur e alcohol) [facility] Rezolveities Answer Date Recorded In the past 12 months has [employer] gas, oil, or water [employer]lic[employer] for a [employer] threatened to shut off services in your [...] 09/28/2024 How often do you attend chur or taoism services? Never 09/28/2024 Do you belong to any clubs o r organizations such as cheondoism groups, unions, fraternal or athletic groups, or [...] place to sleep or slept in a long term (including now)? No 10/13/2023 Housing Stability Vital Sign Answer Frederick e Recorded In the last 12 months, was t here a time when you were not able to pay the mortgage or rent on time? No 09/28/2024 In the past 12 months, how m any times have you moved where you were living? 0 09/28/2024 [facility] time [facility] the [facility] were you homeless or living in a long term (including now)? No 09/28/2024 Personal Safety Answer Date Recorded Have you ever been in or are you currently in a harmful physical or emotional relationship or is someone making you feel afraid or unsafe? Denies 10/28/2024 Sex and Gender Information Value Date Recorded Sex Assigned at Not on file Legal Sex Male 12:22 AM WORKFORCE DEVELOPMENT VICE PRESIDENT Gender Identity Male 11/23/2023 9:04 AM WORKFORCE DEVELOPMENT VICE PRESIDENT Sexual Orientation Not on file Obstetrics History Last Filed Vital Signs Vital Sign Reading Time Taken Comments Blood Pressure 134/84 12/16/2024 2:56 PM WORKFORCE DEVELOPMENT VICE PRESIDENT Pulse 67 12/16/2024 2:56 PM WORKFORCE DEVELOPMENT VICE PRESIDENT Temperature 36.7 C (98 F) 10/28/2024 4:35 PM WORKFORCE DEVELOPMENT VICE PRESIDENT Respiratory Rate 17 10/28/2024 4:35 PM WORKFORCE DEVELOPMENT VICE PRESIDENT Oxygen Saturation 97% 12/16/2024 2:56 PM WORKFORCE DEVELOPMENT VICE PRESIDENT Inhaled Oxygen Concentration - - Weight 97.5 kg (215 lb) 12/16/2024 2:56 PM WORKFORCE DEVELOPMENT VICE PRESIDENT Height 182.9 cm (6') 12/16/2024 2:56 PM WORKFORCE DEVELOPMENT VICE PRESIDENT Body Mass Index 29.16 12/16/2024 2:56 PM WORKFORCE DEVELOPMENT VICE PRESIDENT Plan of Treatment Health Maintenance Due Date Last Done Comments Colon Cancer Screening-Colonoscopy 1955 Hepatitis C Screening 1955 DTaP/Tdap/Td Vaccine (1 - Tdap) 02/17/1968 Hepatitis B Screening 1975 Pneumococcal vaccine 65+ (1 of 2 - PCV) 02/17/1976 Zoster Vaccine (1 of 2) 2007 Prostate Cancer Screening-PSA 04/27/2021 04/27/2019, 01/18/2019 Well Visit 65+ 2022 Covid-19 Vaccine (2 - season) 06/16/202410/2021 Depression Screening 10/10/2024 10/10/2023, 10/10/20 Fall Risk Assessment 10/28/2025 10/28/2024 Influenza Vaccine Completed 09/20/2024, 08/23/2023 Medical Devices Implanted Type Area Information Technology Program Manager Device Identifier Shelf Expiration Date Model / Serial / Lot Medtronic Inc Strata Ii Csf Programmable Flow Control Ball Spring Mechanism 11426 - [id number] Implanted:Qty: 1 on 09/14/2023 by Naseem Ochoa MD at [facility] Shunt Right: Cranial Medtronic Inc 01/08/2026 [id number] / / [id number] [employer]ist [employer] Hydroframe Hydrocoil V-Trak 4mm 5cm 10 Coil Advance Delivery 6736-6786 - [id number] Implanted:Qty: 1 on 07/28/2023 at [facility] [employer] 02/13/2028 [id number] / / [id number] [employer]ist Inc Hydrosoft 2mm 3cm 3d Coil Embolization 1456-0165 - [id number] Implanted:Qty: 1 on 07/28/2023 at [facility] [employer] 03/15/2026 [id number] / / [id number] Microvention Inc Hydrosoft 1.5mm 3cm 3d Coil Embolization 8794-1275 - [id number] Implanted:Qty: 1 on 07/28/2023 at [facility] [employer] 12/14/2027 [id number] / / [id number] Memolane Angio-Seal Vip 6fr Closere Device 222654 - [id number] Implanted:Qty: 1 on 07/28/2023 at [facility] [employer] 03/22/2024 [id number] / / [id number] Memolane Angio-Seal Vip 6fr Closere Device [id number] - [id number] Implanted:Qty: 1 on 08/07/[facility] 02/27/2024 [id number] / / [id number] Medtronic Inc Input Ts 9fr 11cm .038in Dual Distal J Curve Introducer Sheath 23549 - [id number] Implanted:Qty: 1 on 09/14/2023 by Naseem Ochoa MD at [facility] Right: Cranial Medtronic Inc 10/19/2024 [id number] / / [id number] Medtronic Inc Lance .25cm .13cm 120cm Antibiotic Impregnated Peritoneal Catheter 40301 - [id number] Implanted:Qty: 1 on 09/14/2023 by Naseem Ochoa MD at [facility] Right: Cranial Medtronic Inc [id number] 10/25/2024 [id number] / / [id number] Procedures Procedure Name Priority Date/Time Associated Diagnosis Comments REVISION SHUNT 10/28/2024 4:01 PM WORKFORCE DEVELOPMENT VICE PRESIDENT Communicating hydrocephalus (HCC) CT HEAD WO CONTRAST Schedule Routine, Read Routine (OP Routine) 10/25/2024 10:34 AM WORKFORCE DEVELOPMENT VICE PRESIDENT Subdural hemorrhage (HCC) PSA DIAGNOSTIC Routine 04/27/2019 from Last 3 Months or Most Recently Relevant to Health Maintenance Results * CT Head WO Contrast (10/25/2024 10:34 AM WORKFORCE DEVELOPMENT VICE PRESIDENT) Anatomical Region Laterality Modality Head and Neck N/A Computed Tomogra phy 10/25/2024 10:4 4 AM WORKFORCE DEVELOPMENT VICE PRESIDENT Impressions 10/25/2024 1:06 PM WORKFORCE DEVELOPMENT VICE PRESIDENT 1. Interval resolution of pneumocephalus with improvement [...] Raquel Bae M.D. Narrative 10/25/2024 1:06 PM WORKFORCE DEVELOPMENT VICE PRESIDENT EXAMINATION: CT head without contrast HISTORY: 69 [...] No interval calvarial fracture. Procedure Note Raquel Bae MD - 10/25/2024 EXAMINATION: CT head without [...] it. Electronically signed by: Raquel Bae M.D. Naseem Ochoa MD IMG CT PROCEDURES Final Resul t * PSA diagnostic (04/27/2019) SCRIBED PSA, Serum PSA = 5.27 0 - 4 EXTERNAL LAB Blood specimen (specimen) Narrative EXTERNAL LAB - 04/27/2019 A/S since Feb, 2019 PSA = 5.27 us Historical Provider LAB BLOOD ORDERABLES Isabella l Result EXTERNAL LAB from Last 3 Months or Most Recently Relevant to Health Maintenance [facility] MEDICARE [facility] SUPPLEMENT MEDICARE [facility] SU[facility]LE[facility] Advance Directives For more information, please contact: [phone] * Full Code (Latest Code Status on [...] Communication Chayo Arana Spouse Health Care Agent [email or web address] Arana Daughter First Alternate Health Care Agent Care Teams Boat Garnisher Relationship Specialty Start Date End Date Duglas Dumont MD [address] [place] [address] PCP - General Internal Medicine 10/12/23 [place] [address] [place] [address] Consulting Physician Urology 11/19/21
--- OUTSIDE RECORDS SUMMARY | 2025-01-14 10:21 | XMS_ITS | CONTINUITY OF CARE DOCUMENT ---
Author Name jodie feliciano Address Unknown Organization [facility] Address [address] [place] [address] Phone [phone] Care Team Providers Care A Operator Name Role Phone Rodri Quintero MD Unavailable [phone] Rodri Quintero MD Unavailable [phone] INSURANCE PROVIDERS Payer name Policy type / Coverage type [place] red libertarian ID [employer] Commercial insurance co [facility] [id number]
[2025-01-14 10:22] LABS: Basophils Absolute Auto 0.1 K/mm3 (0.0-0.1); Basophils Percent Auto 0.6 % (0.2-1.2); Eosinophils Absolute Auto 0.1 K/mm3 (0-0.3); Eosinophils Percent Auto 1.3 % (0-4.4); Hematocrit 48.8 % (42.0-52.0); Hemoglobin 16.5 g/dL (14.0-18.0); Immature Granulocyte Absolute 0.02 K/mm3 (0.00-0.031); Immature Granulocyte Percent A 0.3 % (0-0.5); Lymphocytes Absolute Auto 1.84 K/mm3 (0.9-3.2); Lymphocytes Percent Auto 23.9 % (18.3-44.2); Mean Corpuscular HGB Conc 33.8 g/dl (32-36); Mean Corpuscular Hemoglobin 32.1 pg (26-34); Mean Corpuscular Volume 94.9 fl (80-100); Mean Platelet Volume 10.5 fl (7.4-10.4); Monocytes Absolute Auto 0.4 K/mm3 (0.1-0.6); Monocytes Percent Auto 5.2 % (2.6-8.5); Neutrophils Absolute Auto 5.3 K/mm3 (1.3-6.7); Neutrophils Percent Auto 68.7 % (45.5-73.1); Platelet Count Result 232 k/mm3 (150-375); Red Blood Count 5.14 M/mm3 (4.6-6.20); Red Cell Distribution Width 12.5 % (11.5-14.5); White Blood Count 7.7 K/mm3 (4.5-10.0)
[2025-01-14 11:02] LABS: LDL Cholesterol Direct 61 mg/dL
[2025-01-14 11:05] LABS: Vitamin D 25 Hydroxy 38.4 ng/mL
[2025-01-14 11:09] LABS: Alanine Aminotransferase 23 U/L (6-50); Albumin Level 4.2 g/dL (3.5-5.1); Alkaline Phosphatase 76 U/L (38-126); Anion Gap 9 mmol/L (4-12); Aspartate Amino Transferase 17 U/L (17-59); Bilirubin,Total 1.2 mg/dL (0.2-1.3); Blood Urea Nitrogen 19 mg/dL (9-20); Calcium 9.3 mg/dL (8.4-10.2); Carbon Dioxide 26 mmol/L (22-30); Chloride 106 mmol/L (98-107); Cholesterol 127 mg/dL (0-200); Estimated Glomerular Filt Rate > 60; Glucose 104 mg/dL (65-110); HDL Direct 48 mg/dL; Potassium 4.3 mmol/L (3.4-5.0); Sodium 141 mmol/L (137-145); Triglycerides 118 mg/dL (<150)
== END 2025-01-14 09:37 | disposition home or self-care (01) ==
PROVIDERS: PCP Internal Medicine; Visit Provider Internal Medicine
DX: E78.5 Hyperlipidemia, unspecified (principal); I10 Essential (primary) hypertension; E55.9 Vitamin D deficiency, unspecified; Z79.899 Other long term (current) drug therapy; Z13.29 Encounter for screening for other suspected endocrine disorder
CPT/HCPCS: 36415; 80053; 80061; 82306; 84439; 84443; 85025

== ENCOUNTER 2025-08-12 10:31 | Outpatient (CLI) | payer MEDICARE, SELFPAY ==
--- OUTSIDE RECORDS SUMMARY | 2025-07-08 03:25 | XMS_ITS | Continuity of Care Document ---
Author Organization [facility] Address [address] [place] [phone] Phone Care Team Providers Care Manager Front Name Role Phone Renan Roy MD Unavailable Unavailable Medications Medication Instructions Dosage Effective Dates (start - stop) Status Comments IBUPROFEN (unknown strength) Not Available - Active ALLERGY RELIEF-D12 (unknown strength) take 1 tablet by oral route every 12 hours Not Available - Active TADALAFIL (unknown strength) Not Available - Active LISINOPRIL (unknown strength) Not Available - Active FENOFIBRATE (unknown strength) Not Available - Active AMLODIPINE-ATORVASTA TIN (unknown strength) Not Available - Active LEVOTHYROXINE SODIUM (unknown strength) Not Available - Active Procedures Procedure Date OV - Established Patient Complex e/m visit add on OV - Established Patient Rocephin 250mg IM/Subcutaneous Injection Intracavitory Prostate U/S Biopsy Prostate Tissue Exam By Pathologist OV - Established Patient Complex e/m visit add on OV - Established Patient OV - Established Patient Complex e/m visit add on Rocephin 250mg IM/Subcutaneous Injection Intracavitory Prostate U/S Biopsy Prostate Global Included In Postop F/u Visit Tissue Exam By Pathologist OV - New Patient Urinalysis - Automated Advance Directives Directive Yes / No Effective Date File Name No Information Encounters Encounter Description Practice Location Reason(s) For Visit Diagnoses Date Provider Providers Copied on Encounter [facility], [address] [place], [place] [address]uite , [place], [place], [id number], [place] tel:[phone] [facility] No Information 5 Kirill Urrutia. [address] [place] [address], [id number] , [place]. tel:[phone] OV - Established Patient [facility], [address] [place] [address] , [place], [place], [id number], [place] [phone] [facility] Elevated prostate specific antigen [PSA]Malignant neoplasm of prostate 5 Kirill Urrutia. [address] [place] [address], [id number] , [place]. tel:[phone] Referring Provider: [place], [address]. tel:[phone] OV - Established Patient [facility], [address] [place] [address] [place], [place], [id number], [place] [phone] [facility] Malignant neoplasm of prostateFamily history of malignant neoplasm of prostateElevated prostate specific antigen [PSA] 4 Kirill Urrutia. [address] [place] [address], [id number] , [place]. tel:[phone] Referring Provider: [place], [address]. tel:[phone] [facility] , [address] [place] [address] [place], [place], [id number], [place] tel:[phone] [facility] Elevated prostate specific antigen [PSA]Malignant neoplasm of prostate 4 Kirill Urrutia. [address] [place] [address], [id number] , [place]. tel:[phone] Referring Provider: [place], [address]. tel:[phone] [facility], [address] [place] [address] [place], [place], [id number], [place] tel:[phone] [facility] No Information 4 Kirill Urrutia. [address] [place] [address], [id number] , [place]. tel: [phone] Referring Provider: [place], [address]. tel:[phone] OV - Established Patient [facility], [address] [place] [address], [id number], [place] tel:[phone] [facility] Malignant neoplasm of prostateFamily history of malignant neoplasm of prostate 4 Kirill Urrutia. [address] [place] [address], [id number] , [place]. tel: [phone] Referring Provider: Lane Mancilla, [place], [address]. tel:[phone] OV - Established Patient [facility], [address] [place] [address], [id number], [place] tel:[phone] [facility] Malignant neoplasm of prostate 4 Kirill Urrutia. [address] [place] [address], [id number] , [place]. tel: [phone] Referring Provider: [place], [address]. tel:[phone] OV - Established Patient [facility], [address] [place] [address] [place], [place], [id number], [place] tel:[phone] [facility] Malignant neoplasm of prostateElevated prostate specific antigen [PSA] Apr-3 0 4 Nataliia Marsh. [address] [place] [address], [id number] , [place]. tel:[phone] Referring Provider: Lane Mancilla, [place], [address]. tel:[phone] [facility] , [address] [place] [address], [id number], [place] tel:[phone] [facility] Elevated prostate specific antigen [PSA]Elevated prostate specific antigen [PSA]Family history of malignant neoplasm of prostate 4 Nataliia Marsh. [address] [place] [address], [id number] , [place]. tel:[phone] Referring Provider: Maximo William, [address] [place] [address], [address] . tel:[phone] OV - New Patient [facility] , [address] [place] [address], [id number], [place] tel:[phone] [facility] Family history of malignant neoplasm of prostateElevated prostate specific antigen [PSA] 4 Nataliia Marsh. [address] [place] [address], [id number] , [place]. tel:[phone] Referring Provider: Lane Mancilla, [place], [address]. tel:[phone] [facility] , [address] [place] [address], [id number], [place] tel:[phone] [facility] No Information 4 Kirill Urrutia. [address] [place] [address], [id number] , [place]. tel:[phone] Family History Family Member Type Diagnosis Age At Onset No Information Payers Payer name Insurance type Covered constitution party ID Jean Paul lind(s) Medicare MB [id number] [facility] Medicare Supplemental CI [id number] Social History Type Description Quantity Date Captured Comments Sex Male Smoking Status No Information Chief Complaint And Reason For Visit No Information Reason For Referral Reason For Referral No Information Plan Of Treatment Date Type Action Status Appointment Roland Manzo BOOKED History Of Present Illness Encounter Date Complaint History Of Prese nt Illness No Information Functional Status Date Functional Assessmen t No Information Instructions Date Instruction Additional Infor mation No Information Assessments Type Assessment Date No Information Patient Care Teams Name Effective Dates (start - stop) Status Members No Information
[2025-08-12 11:19] LABS: Hematocrit 49.5 % (42.0-52.0); Hemoglobin 17.0 g/dL (14.0-18.0); Immature Granulocyte Percent A 0.4 % (0-0.5); Lymphocytes Absolute Auto 1.61 K/mm3 (0.9-3.2); Mean Corpuscular HGB Conc 34.3 g/dl (32-36); Mean Corpuscular Hemoglobin 32.3 pg (26-34); Mean Corpuscular Volume 93.9 fl (80-100); Nucleated Red Blood Cells Absolute Auto 0.000 K/mm3 (0.0-0.012); Nucleated Red Blood Cells Perc 0.0 % (0.0-0.2); Platelet Count Result 250 k/mm3 (150-375); Red Blood Count 5.27 M/mm3 (4.6-6.20); White Blood Count 7.3 K/mm3 (4.5-10.0)
[2025-08-12 11:29] LABS: Hemoglobin A1C 5.6 % (<5.7)
[2025-08-12 11:40] LABS: Alanine Aminotransferase 30 U/L (6-50); Albumin Level 4.4 g/dL (3.5-5.1); Alkaline Phosphatase 85 U/L (38-126); Anion Gap 8 mmol/L (4-12); Aspartate Amino Transferase 23 U/L (17-59); Bilirubin,Total 0.9 mg/dL (0.2-1.3); Blood Urea Nitrogen 21 mg/dL (9-20); Calcium 8.9 mg/dL (8.4-10.2); Carbon Dioxide 25 mmol/L (22-30); Chloride 105 mmol/L (98-107); Cholesterol 154 mg/dL (0-200); Estimated Glomerular Filt Rate > 60; Glucose 112 mg/dL (65-110); HDL Direct 42 mg/dL; Potassium 3.7 mmol/L (3.4-5.0); Sodium 138 mmol/L (137-145); Total Protein 7.4 g/dL (6.3-8.2); Triglycerides 127 mg/dL (<150)
[2025-08-12 11:49] LABS: Free T4 Free Thyroxine 1.41 ng/dL (0.78-2.19)
--- OUTSIDE RECORDS SUMMARY | 2025-08-12 12:09 | XMS_ITS | Encounter Summary ---
Author Organization [facility] Address [address] [place] [address] Care Team Providers Care Greens Keeper Name Role Phone Unknown, Notinfile Primary Care Provider Unavail able Kyler Dubois Primary Care Provider Michael Blackmon MD Unavailable [phone] Duglas Dumont MD Primary Care Provider Encounter Details Date Type Department Care Team (Late st Contact Info) Description 06/02/2018 Orders Only [facility] Information Management [address] [place] [address] Scanning, Provider Social History Tobacco Use Types Packs/Day Years Used Date Smoking Tobacco: Never Smokeless Tobacco: Never Alcohol Use Standard Drinks/Week Comments Yes 5 (1 standard drink = 0.6 oz pur e alcohol) Sex and Gender Information Value Date Recorded Sex Assigned at Not on file 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 Gender Identity Male 11/23/2023 9:04 AM FRENCH FOLDING MACHINE OPERATOR Sexual Orientation Not on file documented as of this encounter Plan of Treatment Not on file documented as of this encounter Procedures Procedure Name Priority Date/Time Associated Diagnosis Comments CARDIOLOGY DOCUMENT SCAN 06/02/2018 SCAN - RADIOLOGY/IMAGING 06/01/2018 SCAN - LABS 06/01/2018 documented in this encounter Results * Cardiology Document Scan (06/02/2018) Anatomical Region Laterality Modality Other us Provider Scanning CV CARDIAC SERVICES PROCEDURES Final Result * SCAN - LABS (06/01/2018) us Provider Scanning Final Result * SCAN - RADIOLOGY/IMAGING (06/01/2018) Anatomical Region Laterality Modality Other us Provider Scanning Final Result documented in this encounter Visit Diagnoses Not on filedocumented in this encounter Additional Health Concerns Infection Onset Date Last Indicated Resolved Time C. difficile 08/11/2023 08/11/2023 08/16/2023 8:53 AM CDT COVID: Suspected 08/19/2023 08/19/2023 08/19/2023 7:46 PM CDT Ring Surveillance Comment:C auris ring surveillance 09/18/2024 09/18/20242023 7:22 AM FRENCH FOLDING MACHINE OPERATOR documented as of this encounter Care Teams Greens Keeper Relationship Specialty Start Date End Date Unknown, Notinfile PCP - General 06/01/18 06/15/18 Kyler Dubois PA [address] [place] [address] PCP - General Physician Credit Product Analyst 06/16/18 10/11/23 [place] [address] [place] [address] PCP - General Internal Medicine 10/12/23 [place] [address] [place] [place] [address] Consulting Physician Urology 11/19/21 documented as of this encounter
--- OUTSIDE RECORDS SUMMARY | 2025-08-12 12:09 | XMS_ITS | Clinical Summary ---
Author Organization [facility] Address [address] [place] [address] Care Team Providers Care Expansion Joint Builder Name Role Phone Unavailable Primary Care Provider [...] (50 mg total) before bedtime. 09/13/20 Active Active Problems Problem Noted Date Diagnosed [...] Comments Blood Pressure 150/97 09/13/2023 10:31 AM HELPER STEEL FABRICATION Pulse 97 09/13/2023 10:31 AM HELPER STEEL FABRICATION Temperature 37 C (98.6 F) 09/13/2023 8:27 AM HELPER STEEL FABRICATION Respiratory Rate 15 09/13/2023 8:27 AM HELPER STEEL FABRICATION Oxygen Saturation 97% 09/13/2023 6:00 PM HELPER STEEL FABRICATION Inhaled Oxygen Concentration - - Weight 100.7 kg (222 lb) 09/08/2023 4:00 AM HELPER STEEL FABRICATION Height 182.9 cm (6') 08/25/2023 5:30 PM HELPER STEEL FABRICATION Body Mass Index 30.11 08/25/2023 5:30 PM HELPER STEEL FABRICATION Plan of Treatment Health Maintenance Due Date Last Done Comments CT Colonography 1957 Colonoscopy 1957 Colorectal Cancer Screening 1957 FIT-DNA (Cologuard) 1957 FIT 1957 FOBT 1957 Sigmoidoscopy 1957 Annual Visit Topic 1958 Hepatitis C Screening 1975 DTaP/Tdap/Td Vaccines (1 - Tdap) 02/17/1976 Pneumococcal Vaccine: 65+ Ye ars (1 of 2 - PCV) 2007 PSA Test 02/17/2012 HIB Vaccines Aged Out No longer eligi [...]
--- OUTSIDE RECORDS SUMMARY | 2025-08-12 12:09 | XMS_ITS | Encounter Summary ---
Author Organization [facility] Address [address] [place] [address] Care Team Providers Care Forestry Engineer Name Role Phone Michael Blackmon MD Unavailable [phone] Duglas Dumont MD Primary Care Provider [phone] Encounter Details Date Type Department Care Team (Late st Contact Info) Description 09/20/2024 Documentation [facility] [address] [place] [address] Alexey Hemphill RN Social History Tobacco Use Types Packs/Day Years Used Date Smoking Tobacco: Never Cigarettes Smokeless Tobacco: Never Alcohol Use Standard Drinks/Week Comments Yes 5 (1 standard drink = 0.6 oz pur e alcohol) [facility] Utilities Answer Date Recorded In the past 12 months has [employer], gas, oil, or water [employer] threatened to shut off services in your home? No 10/13/2023 Social Connection and Isolation Panel Answer Date Recorded In a typical week, how many times do you talk on the phone with family, friends, or neighbors? Three times a week 10/13/2023 How often do you get togethe r with friends or relatives? Three times a week 10/13/2023 How often do you attend [facility] or baptism services? Never 10/13/2023 Do you belong to any clubs o r organizations such as methodist groups, unions, fraternal or athletic groups, or [...] place to sleep or slept in a group home (including now)? No 10/13/2023 Personal Safety Answer Date Recorded Have you ever been in or are you currently in a harmful physical or emotional relationship or is someone making you feel afraid or unsafe? 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 Gender Identity Male 11/23/2023 9:04 AM FOIL STAMP OPERATOR Sexual Orientation Not on file documented as of this encounter Plan of Treatment Not on file documented as of this encounter Visit Diagnoses Not on filedocumented in this encounter Additional Health Concerns Infection Onset Date Last Indicated Resolved Time Ring Surveillance Comment:C auris ring surveillance 09/18/2024 09/18/20242023 7:22 AM FOIL STAMP OPERATOR documented as of this encounter Care Teams Forestry Engineer Relationship Specialty [place] [address] [place] [address] PCP - General Internal Medicine 10/12/23 [place] [address] [place] [address] Consulting Physician Urology 11/19/21 documented as of this encounter
--- OUTSIDE RECORDS SUMMARY | 2025-08-12 12:10 | XMS_ITS | Encounter Summary ---
Author Organization [facility] Healthcare Address [address] [place] [address] Care Team Providers Care Paleontological Helper Name Role Phone Unknown, Notinfile Primary Care Provider Unavail able Kyler Dubois Primary Care Provider Micahel Blackmon MD Unavailable Duglas Dumont MD Primary Care Provider [phone] Encounter Details Date Type Department Care Team (Late st Contact Info) Description 06/07/2018 Orders Only [facility] Health Information Management [address] [place] [id number] Scanning, Provider Social History Tobacco Use Types Packs/Day Years Used Date Smoking Tobacco: Never Smokeless Tobacco: Never Alcohol Use Standard Drinks/Week Comments Yes 5 (1 standard drink = 0.6 oz pur e alcohol) Sex and Gender Information Value Date Recorded Sex Assigned at Not on file Legal 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 Gender Identity Male 11/23/2023 9:04 AM SUPERVISOR ROSE GRADING Sexual Orientation Not on file documented as of this encounter Plan of Treatment Not on file documented as of this encounter Procedures Procedure Name Priority Date/Time Associated Diagnosis Comments SCAN - RADIOLOGY/IMAGING 06/07/2018 documented in this encounter Results * SCAN - RADIOLOGY/IMAGING (06/07/2018) Anatomical Region Laterality Modality Other us Provider Scanning Final Result documented in this encounter Visit Diagnoses Not on filedocumented in this encounter Additional Health Concerns Infection Onset Date Last Indicated Resolved Time C. difficile 08/11/2023 08/11/2023 08/16/2023 8:53 AM CDT COVID: Suspected 08/19/2023 08/19/2023 08/19/2023 7:46 PM CDT Ring Surveillance Comment:C auris ring surveillance 09/18/2024 09/18/20242023 7:22 AM SUPERVISOR ROSE GRADING documented as of this encounter Care Teams Paleontological Helper Relationship Specialty Start Date End Date Unknown, Notinfile PCP - General 06/01/18 06/15/18 Kyler Dubois PA [address] [facility] [address] [place] [address] PCP - General Physician Studio Potter 06/16/18 10/11/23 [place] [address] [place] [address] PCP - General Internal Medicine 10/12/23 [place] [address] [place] [address] Consulting Physician Urology 11/19/21 documented as of this encounter
--- OUTSIDE RECORDS SUMMARY | 2025-08-12 12:10 | XMS_ITS | Clinical Summary ---
Author Organization [facility] Address [address] [facility] [address] [place] [address] Phone Care Team Providers Care Oil Winterizer Name Role Phone Michael Blackmon MD Unavailable Duglas Dumont MD Primary Care Provider [phone] Allergies No known active allergies Medications cetirizine (ZyrTEC) 10 mg tablet Take 1 tablet (10 mg total) by mouth nightly Active multivitamin with folic acid 400 mcg tablet Take 1 tablet by mouth daily 4 Active metoprolol tartrate (LOPRESSOR) 25 mg immediate release tablet Take 1 tablet (25 mg total) by mouth 2 (two) times a day Active atorvastatin (LIPITOR) 40 mg tablet Take 1 tablet (40 mg total) by mouth nightly Active famotidine (PEPCID) 20 mg tablet Take 1 tablet (20 mg total) by mouth nightly Active valsartan-hydro chlorothiazide (DIOVAN-HCT) 320-12.5 mg per tablet Take 1 tablet by mouth daily Active amLODIPine (NORVASC) 2.5 mg tablet TAKE 1 TABLET BY MOUTH DAILY. DISCONTINUE THE AMLODIPINE 5 MG. 5 Active Active Problems Problem Noted Date Diagnosed Date Acute pain 09/17/2024 Assessment & Plan (09/17/2024 2:07 PM TEACHER'S ASSISTANT): -multimodal pain control Discharge planning issues 09/17/2024 Assessment & Plan (09/17/2024 2:07 PM TEACHER'S ASSISTANT): -09/17 Admission Treatment note needed CM pending CAD (coronary artery disease) 09/17/2024 Assessment & Plan (09/17/2024 2:08 PM TEACHER'S ASSISTANT): #HTN #HLD - Hold home ASA - Resume home metoprolol, atorvastatin Subdural hemorrhage 09/17/2024 Subdural hematoma 10/11/2023 Assessment & Plan (09/17/2024 2:06 PM TEACHER'S ASSISTANT): # Outpatient follows with Dr. 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 Ochoa, 07/28/2023) c/b bilateral EVDs placed on 09/14, RP VPS (Strata 1.5) - DISABILITY INSURANCE CLAIM EXAMINER shunt series on admission: Right parietal approach ventriculoperitoneal shunt catheter terminates in the right hemiabdomen without kinking or catheter discontinuity. - NSGY adjusted strata valve to 2.0 on 10/11 PM -CT head prior to discharge, as above Altered mental status 10/11/2023 Assessment & Plan (10/20/2023 10:22 AM TEACHER'S ASSISTANT): Pts states he started speaking 1-2 weeks [...] 10/11/2023 Assessment & Plan (10/16/2023 12:38 PM TEACHER'S ASSISTANT): - On physical exam, gtube appears to be dislodged. - No signs or symptoms of peritonitis. No leukocytosis, no pain on palpation of abdomen. - notes he has been eating and drinking though intake has been very limited recently with her needing to force him to eat - CUSTOMS IMPORT SPECIALIST evaluation: regular diet with thin liquids - RD c/s: patient eating approx 25% of required calories, tolerating ramp up of TF to goal today - G-tube functional at this time HTN (hypertension) 10/11/2023 Assessment & Plan (10/11/2023 2:26 AM TEACHER'S ASSISTANT): - Continue home amlodipine 10mg daily, losartan 50mg BID and metoprolol 12.5mg BID Hydrocephalus 09/13/2023 Acute hypoxemic respiratory failure 08/25/2023 SAH (subarachnoid hemorrhage) 07/28/2023 Prostate cancer 09/07/2021 Overview (09/07/2021): Added automatically from request for surgery [id number] Elevated PSA 01/25/2019 Overview (01/25/2019): Added automatically from request for surgery [id number] 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 Encounters Date Type Department Care Team Description 06/24/2025 2:00 PM CDT Office Visit [facility] Cardiology at [address] [place] [address] Patrice Posadas MD Hx of CABG (Primary Dx); SAH (subarachnoid hemorrhage); Coronary artery disease involving coronary bypass graft of ruby heart without angina pectoris 05/21/2025 Telephone [facility] Physicians [address] [facility] [address] [place] [address] Naseem Ochoa MD 05/21/2025 Documentation [facility] Medicine Neurosurgery [address] [facility] Medical Office [address] [place] [address] Rafael Benites PA 05/19/2025 1:00 PM CDT - 05/19/2025 11:59 PM CDT Hospital Encounter [facility] - Imaging [address] [place] [id number] S/P DISABILITY INSURANCE CLAIM EXAMINER shunt; Subdural hemorrhage (HCC); Communicating hydrocephalus (HCC) Discharge Disposition: Discharge to home or self care from Last 3 Months Immunizations Immunization Administration [...] CAROTID LEFT 08/02/2023 Left ANGIO SELECTIVE CAROTID SADDLE STITCH OPERATOR RIGHT 08/07/2023 Right ANGIO SELECTIVE INTERNAL CAROTID [...] drink = 0.6 oz pur e alcohol) [facility] Utilities Answer Date Recorded In the past 12 months has [employer], gas, oil, or water [employer] threatened to shut off services in your home? No 09/28/2024 Social Connection and Isolation Panel Answer Date Recorded In a typical week, how many times do you talk on the phone with family, friends, or neighbors? More than three times a week 09/28/2024 How often do you get togethe r with friends or relatives? More than three times a week 09/28/2024 How often do you attend chur ch or church services? Never 09/28/2024 Do you belong to any clubs o r organizations such as confucianism groups, unions, fraternal or athletic groups, or [...] place to sleep or slept in a penitentiary (including now)? No 10/13/2023 Housing Stability Vital Sign Answer Frederick e Recorded In the last 12 months, was t here a time when you were not able to pay the mortgage or rent on time? No 09/28/2024 In the past 12 months, how m any times have you moved where you were living? 0 09/28/2024 At any time in the past 12 m [facility], were you homeless or living in a penitentiary (including now)? No 09/28/2024 Personal Safety Answer Date Recorded Have you ever been in or are you currently in a harmful physical or emotional relationship or is someone making you feel afraid or unsafe? Denies 10/28/2024 Sex and Gender Information Value Date Recorded Sex Assigned at Not on file Legal Sex Male 12:22 AM TEACHER'S ASSISTANT Gender Identity Male 11/23/2023 9:04 AM TEACHER'S ASSISTANT Sexual Orientation Not on file Obstetrics History Last Filed Vital Signs Vital Sign Reading Time Taken Comments Blood Pressure 148/86 06/24/2025 2:04 PM CDT Pulse 68 06/24/2025 2:04 PM CDT Temperature 36.7 C (98 F) 10/28/2024 4:35 PM TEACHER'S ASSISTANT Respiratory Rate 17 10/28/2024 4:35 PM TEACHER'S ASSISTANT Oxygen Saturation 97% 06/24/2025 2:04 PM CDT Inhaled Oxygen Concentration - - Weight 107.4 kg (236 lb 11.2 oz) 06/24/2025 2:04 PM CDT Height 182.9 cm (6') 06/24/2025 2:04 PM CDT Body Mass Index 32.1 06/24/2025 2:04 PM CDT Plan of Treatment Health Maintenance Due Date Last Done Comments Colon Cancer Screening-Colonoscopy 1955 Hepatitis C Screening 1957 DTaP/Tdap/Td Vaccine (1 - Tdap) 02/17/1968 Hepatitis B Screening 1975 Pneumococcal vaccine 65+ (1 of 2 - PCV) 02/17/1976 Zoster Vaccine (1 of 2) 2007 Prostate Cancer Screening-PSA 04/27/2021 04/27/2019, 01/18/2019 Well Visit 65+ 2022 Depression Screening 10/10/2024 10/10/2023, 10/10/20 23 Covid-19 Vaccine (5 - 2024-2 6 season) 2025 09/15/2022, 07/23/2021, 10/23/2020, Additional history exists Influenza Vaccine (#1) 2025 09/20/2024, 2022 Fall Risk Assessment 10/28/2025 10/28/2024 Medical Devices Implanted Type Area Sap Functional Analyst Device Identifier Shelf Expiration Date Model / Serial / Lot My eShoe Inc Strata Ii Csf Programmable Flow Control Ball Spring Mechanism [id number] - [id number] Implanted:Qty: 1 on 09/14/2023 by Naseem Ochoa MD at [facility] Shunt Right: Cranial Medtronic Inc 01/08/2026 [id number] / / [id number] Microvention Inc Hydroframe Hydrocoil V-Trak 4mm 5cm 10 Coil Advance Delivery 2760-3588 - [id number] Implanted:Qty: 1 on 07/28/2023 at [facility] Microvention Inc 02/13/2028 [id number] / / [id number] Webtrekk Inc Hydrosoft 2mm 3cm 3d Coil Embolization 7138-9938 - [id number] Implanted:Qty: 1 on 07/28/2023 at [facility] MicrovBarefoot Networks Inc 03/15/2026 [id number] / / [id number] MicrovBarefoot Networks Inc Hydrosoft 1.5mm 3cm 3d Coil Embolization 0290-2372 - [id number] Implanted:Qty: 1 on 07/28/2023 at [facility] Microvention Inc 12/14/2027 [id number] / / [id number] Picreel Angio-Seal Vip 6fr Closere Device [id number] - [id number] Implanted:Qty: 1 on 07/28/2023 at [facility] Pic[employer] 03/22/2024 [id number] / / [id number] Picreel Angio-Seal Vip 6fr Closere Device [id number] - [id number] Implanted:Qty: 1 on 08/07/20[facility] 02/27/2024 [id number] / / [id number] Medtronic Inc Input Ts 9fr 11cm .038in Dual Distal J Curve Introducer Sheath [id number] - [id number] Implanted:Qty: 1 on 09/14/2023 by Naseem Ochoa MD at [facility] Right: Cranial Medtronic Inc 10/19/2024 [id number] / / [id number] Medtronic Inc Lance .25cm .13cm 120cm Antibiotic Impregnated Peritoneal Catheter 48390 - [id number] Implanted:Qty: 1 on 09/14/2023 by Naseem Ochoa MD at [facility] Right: Cranial Medtronic Inc [id number] 10/25/2024 [id number] / / [id number] Procedures Procedure Name Priority Date/Time Associated Diagnosis Comments POCT LIPID PANEL Routine 06/24/2025 3:16 PM CDT Coronary artery disease involving coronary bypass graft of ruby heart without angina pectoris CT HEAD WO CONTRAST Schedule Routine, Read Routine (OP Routine) 05/19/2025 1:24 PM CDT S/P DISABILITY INSURANCE CLAIM EXAMINER shunt Subdural hemorrhage (HCC) Communicating hydrocephalus (HCC) PSA DIAGNOSTIC Routine 04/27/2019 from Last 3 Months or Most Recently Relevant to Health Maintenance Results * (ABNORMAL) POCT lipid panel (06/24/2025 3:16 PM CDT) Cholesterol, POC 133 <200 MG/DL HDL, POC 35(A) >=40 mg/dL Triglycerides, POC 140 <=149 mg/dL LDL Cholesterol POC 70 <=129 mg/dL Chol/HDL Ratio, POC 3.8 NONE Non-HDL Cholesterol, POC 98 NONE mg/dL Cholesterol Total, POC 133 30 - 199 mg/dL Capillary blood 06/24/2025 3 :16 PM CDT us Patrice Posadas MD POINT OF CARE TEST ORDER KASEY Final Result * CT Head WO Contrast (05/19/2025 1:24 PM CDT) Anatomical Region Laterality Modality Head and Neck N/A Computed Tomogra phy 05/19/2025 1:54 PM CDT Impressions 05/19/2025 1:54 PM CDT No acute intracranial process and no significant interval change in ventricular size. Electronically signed by: Michael Urbano M.D. Ph.D. Narrative 05/19/2025 1:54 PM CDT EXAMINATION: CT head without contrast HISTORY: 70-year-old man with hydrocephalus status post ventriculoperitoneal shunt complicated by subdural hemorrhage treated with eduardo holes. TECHNIQUE: CT of the head was performed with images acquired from skull base to vertex without intravenous contrast. 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 There is a right parietal approach shunt catheter. The ventricular size is unchanged. Encephalomalacia is noted in the right frontal lobe greater than left frontal lobe, the right medial frontal lobe, and along the shunt catheter tract. There is no acute intracranial hemorrhage. Ventricles are of normal size and morphology. No mass effect or midline shift is present. The gaffney-white matter differentiation is normal. The visualized portions of the orbits are normal. The visualized portions of the mastoids are normal. The visualized portions of the paranasal sinuses are normal. No fractures are identified. Procedure Note Michael Urbano MD PhD - 05/19/2025 EXAMINATION: CT head without contrast HISTORY: 70-year-old man with hydrocephalus status post ventriculoperitoneal shunt complicated by subdural hemorrhage treated with eduardo holes. TECHNIQUE: CT of the head was performed with images acquired from skull base to vertex without intravenous contrast. 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 There is a right parietal approach shunt catheter. The ventricular size is unchanged. Encephalomalacia is noted in the right frontal lobe greater than left frontal lobe, the right medial frontal lobe, and along the shunt catheter tract. There is no acute intracranial hemorrhage. Ventricles are of normal size and morphology. No mass effect or midline shift is present. The gaffney-white matter differentiation is normal. The visualized portions of the orbits are normal. The visualized portions of the mastoids are normal. The visualized portions of the paranasal sinuses are normal. No fractures are identified. IMPRESSION: No acute intracranial process and no significant interval change in ventricular size. Electronically signed by: Michael Urbano M.D. Ph.D. us Rafael MCKAY IMG CT PROCEDURES Final R esult * PSA diagnostic (04/27/2019) SCRIBED PSA, Serum PSA = 5.27 0 - 4 EXTERNAL LAB Blood specimen (specimen) Narrative EXTERNAL LAB - 04/27/2019 A/S since Feb, 2019 PSA = 5.27 us Historical Provider LAB BLOOD ORDERABLES Isabella quick Result EXTERNAL LAB from Last 3 Months or Most Recently Relevant to Health Maintenance Insurance [facility] MEDICARE [place]ER MEDICARE SUPPLEMENT MEDICARE [place]ER MEDICARE [place]PPLE[place] [id number] Advance Directives For more information, please contact: [phone] * Full Code (Latest Code Status on [...] Communication Chayo Arana Spouse Health Care Agent [email or web address] Norah Arana Daughter First Alternate Health Care Agent Care Teams Oil Winterizer Relationship Specialty [place] [address] [place] [address] PCP - General Internal Medicine 10/12/23 [place] [address] [place] [address] Consulting Physician Urology 11/19/21
--- OUTSIDE RECORDS SUMMARY | 2025-08-12 12:10 | XMS_ITS ---
Author Organization [facility] Address [address] [facility] [address] [place] [address] Phone Care Team Providers Care Fire Captain Marine Name Role Phone Michael Blackmon MD Unavailable Duglas Dumont MD Primary Care Provider [phone] Active Problems Problem Noted Date Diagnosed Date Acute pain 09/17/2024 Assessment & Plan (09/17/2024 2:07 PM NEUROPSYCHOLOGY DIVISION CHIEF): -multimodal pain control Discharge planning issues 09/17/2024 Assessment & Plan (09/17/2024 2:07 PM NEUROPSYCHOLOGY DIVISION CHIEF): -09/17 Admission Treatment note needed CM pending CAD (coronary artery disease) 09/17/2024 Assessment & Plan (09/17/2024 2:08 PM NEUROPSYCHOLOGY DIVISION CHIEF): #HTN #HLD - Hold home ASA - Resume home metoprolol, atorvastatin Subdural hemorrhage 09/17/2024 Subdural hematoma 10/11/2023 Assessment & Plan (09/17/2024 2:06 PM NEUROPSYCHOLOGY DIVISION CHIEF): # Outpatient follows with Dr. 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 Ochoa, 07/28/2023) c/b bilateral EVDs placed on 09/14, RP VPS (Strata 1.5) - CANDY COOKER HELPER shunt series on admission: Right parietal approach ventriculoperitoneal shunt catheter terminates in the right hemiabdomen without kinking or catheter discontinuity. - NSGY adjusted strata valve to 2.0 on 10/11 PM -CT head prior to discharge, as above Altered mental status 10/11/2023 Assessment & Plan (10/20/2023 10:22 AM NEUROPSYCHOLOGY DIVISION CHIEF): Pts states he started speaking 1-2 weeks [...] 10/11/2023 Assessment & Plan (10/16/2023 12:38 PM NEUROPSYCHOLOGY DIVISION CHIEF): - On physical exam, gtube appears to be dislodged. - No signs or symptoms of peritonitis. No leukocytosis, no pain on palpation of abdomen. - notes he has been eating and drinking though intake has been very limited recently with her needing to force him to eat - COMMERCIAL CONSTRUCTION SUPERINTENDENT evaluation: regular diet with thin liquids - RD c/s: patient eating approx 25% of required calories, tolerating ramp up of TF to goal today - G-tube functional at this time HTN (hypertension) 10/11/2023 Assessment & Plan (10/11/2023 2:26 AM NEUROPSYCHOLOGY DIVISION CHIEF): - Continue home amlodipine 10mg daily, losartan 50mg BID and metoprolol 12.5mg BID Hydrocephalus 09/13/2023 Acute hypoxemic respiratory failure 08/25/2023 SAH (subarachnoid hemorrhage) 07/28/2023 Prostate cancer 09/07/2021 Overview (09/07/2021): Added automatically from request for surgery [id number] Elevated PSA 01/25/2019 Overview (01/25/2019): Added automatically from request for surgery [id number] 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
[2025-08-12 12:16] LABS: Thyroid Stimulating Hormone 2.370 uIU/mL (0.465-4.680)
== END 2025-08-12 10:32 | disposition home or self-care (01) ==
PROVIDERS: PCP Internal Medicine; Visit Provider Internal Medicine
DX: Z13.1 Encounter for screening for diabetes mellitus (principal); Z13.29 Encounter for screening for other suspected endocrine disorder; E78.5 Hyperlipidemia, unspecified; I10 Essential (primary) hypertension; Z79.899 Other long term (current) drug therapy
CPT/HCPCS: 36415; 80053; 80061; 83036; 84439; 84443; 85025